=== PATIENT | female | born 1990 | race Caucasian/White ===

== ENCOUNTER 2021-12-25 20:04 | Emergency (ER) | payer BC, SELFPAY ==
[2021-12-25 20:20] VITALS: BP 145/89; PULSE 89; RESP 18; TEMP 36.7; O2SAT 99; BMI 23.5
--- NOTE | 2021-12-25 20:38 | CRLHL7_ITS ---
For Patients: As a result of the Century Cures Act, medical imaging exams and procedure reports are released immediately into your electronic medical record. You may view this report before your referring provider. If you have questions, please contact your health care provider. INDICATION: Left-sided abdominal pain. Nausea. TECHNIQUE: CT abdomen and pelvis without contrast. COMPARISON: None. FINDINGS: Lower chest: Scattered dependent atelectasis. Liver: Normal in size and attenuation. No suspicious masses. Gallbladder and bile ducts: No stones or inflammation. No biliary dilatation. Pancreas: Unremarkable. No mass or inflammation. Spleen: Normal in size. No masses. Adrenal glands: Normal in size. No nodules. Kidneys: Normal in size. No suspicious masses, stones, or hydronephrosis. GI tract: Moderate colonic stool burden.. Normal in caliber. No sign of mass or inflammation. Normal appendix. Vasculature: Abdominal aorta is normal in caliber. Lymph nodes: No lymphadenopathy. Peritoneum/Abdominal Wall: Unremarkable. No sign of mass or infiltration. No free air or significant free fluid. Pelvis: Fibroid uterus. Bones: Unremarkable for age. IMPRESSION: No acute intra-abdominal/pelvic abnormality on this noncontrast CT scan. Moderate colonic stool burden. Please note that all CT scans at this facility use dose modulation, iterative reconstruction, and/or weight-based dosing when appropriate to reduce radiation dose to as low as reasonably achievable. Dictated by Jamie Roberson MD @ 12/25/2021 9:47:41 PM (Electronically Signed)
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
[2021-12-25 20:43] LABS: Color Urine Yellow (Yellow)
[2021-12-25 20:44] LABS: Appearance Urine Clear (Clear); Bilirubin Urine Negative (Negative); Blood Urine Negative (Negative); Glucose Urine Negative (Negative); Ketones Urine Negative (Negative); Specific Gravity Urine 1.015 (1.000-1.030); pH Urine 6.5 (5.0-8.5)
[2021-12-25 20:45] LABS: Leukocyte Esterase Urine Negative (Negative); Nitrite Urine Negative (Negative); Protein Urine Negative (Negative); RBC Urine 0-2 (0-2); Squamous Epithelial Cell Urine Few (None-Few); Ur HCG Qualitative* Negative (Negative); Urobilinogen Urine 0.2 (0.2-1.0); WBC Urine 0-2 (0-5)
[2021-12-25 21:52] VITALS: BP 135/71; PULSE 79; RESP 18; TEMP 36.7; O2SAT 99
[2021-12-25] MEDS: IBUPROFEN 200 MG TABLET 400 MG PO (21:57)
[2021-12-25 22:05] VITALS: BP 135/71; PULSE 79; RESP 18; TEMP 36.7
--- OUTSIDE RECORDS SUMMARY | 2021-12-27 10:51 | XMS_ITS | Clinical Summary ---
:1990 Author Organization [facility] [place] [address] Care Team Providers Name Role Phone Gemma Hewitt Primary Care Provider Allergies No known active allergies Medications Medication Sig Dispensed Refills Start Date End Date Status albuterol HFA Inhale 2 Puffs by 1 Inhaler 0 02/21/2015 Active (PRO-AIR,VENTOLIN,NE mouth every 4 hours OVENTIL) 90 if needed. mcg/actuation inhalerIndications: Bronchitis fluticasone (50 mcg Inhale 1 [place] into 1 Bottle 0 07/16/2015 Active per actuation) nasal both nostrils once solution daily. (FLONASE)Indications : Middle ear effusion, right citalopram (CELEXA) TAKE ONE TABLET BY 90 tablet 1 11/23/2015 Active 40 mg MOUTH EVERY DAY - tabletIndications: DISCONTINUE 20 MG Adjustment disorder TABLETS with depressed mood LORazepam (ATIVAN) 1 1 oral twice daily 15 tablet 0 12/10/2015 Active mg as needed anxiety tabletIndications: attacks Adjustment disorder with mixed anxiety and depressed mood traZODone (DESYREL) Take 1 tablet oral 180 tablet 1 12/10/2015 Active 100 mg at bedtime for tabletIndications: sleep Anxiety VITAMIN TAKE ONE TABLET BY 100 tablet 3 05/25/2017 Active PLUS LOW IRON 27 mg MOUTH EVERY DAY iron- 1 mg tabletIndications: Encounter for supervision of normal first in first trimester Active Problems Problem Noted Date Encounter for supervision of normal first Vitamin D deficiency 03/28/2013 Overweight(278.02) 01/13/2013 Abnormal Pap smear 01/13/2013 BALWINDER I (cervical intraepithelial neoplasia I) 0 Overview: 03/2009: Pap LGSIL 05/2009: Colpo BALWINDER 1 01/07: Pap and HPV pending Tobacco use disorder 08/19/2006 HPV (human papilloma virus) infection Overview: needs colp Cervical high risk HPV (human papillomavirus) test pos itive Overview: Plan: Routine Screening Comments Yes Resolved Problems Problem Noted Date Resolved Date BRONCHITIS - ACUTE 03/17/2005 01/16/2011 Immunizations Name Administration Dates Next Due DTP 05/04/1991, 05/12/1990, 03/11/1990, 11/29 DTaP 12/24/1994 HIB PRP-OMP (PedvaxHIB) 05/04/1991 Hepatitis B (Peds) 01/03/2003, 12/22/2001, 11/17/2001 Human Papilloma Virus Vaccine 07/25/2011, 03/18/2011, 2010 MMR 11/28/2003, 05/04/1991 Oral Polio Vaccine 11/14/1991, 08/02/1991, 03/11/1990, 11/29 Td (Age >=7 Years) 01/03/2003 Tdap 01/15/2011 Family History Medical History Relation Name Comments Good Health Father Good Health Mother Hypertension Mother Bipolar disorder Paternal Aunt Cancer Paternal Grandfather Cancer-colon Paternal Grandmother Bipolar disorder Sister Depression Sister Relation Name Status Comments Father Alive Maternal Grandfather Maternal Grandmother Mother Alive Paternal Aunt Paternal Grandfather Paternal Grandmother Sister Alive Social History Tobacco Use Types Packs/Day Years Used Date Current Every Day Smoker Cigarettes 0.5 6 Smokeless Tobacco: Never Used Tobacco Cessation: Ready to Quit: No; Co unseling Given: Yes Alcohol Use Standard Drinks/Week Comments No 1 (1 standard drink = 0.6 oz pure alcoho l) Last drink 01/28/2016 Alcohol Habits Answer Date Recorded How often do you have a drink containing alcohol? Not asked How many drinks containing alcohol do you have on Not asked a typical day when you are drinking? How often do you have six or more drinks on one Not asked occasion? Comment: Last drink 01/28/2016 02/04/2016 Comments Yes Sex Assigned at Date Recorded Not on file Obstetrics History Para Term AB IAB SAB Ectopic Multiple Living Live Births 1 0 0 0 0 0 0 0 0 0 Date Outcome GA Total Labor/2nd/3rd Weight Sex Delivery Anes PTL Pao A 1 A5 Name Clin Labor Current Last Filed Vital Signs Vital Sign Reading Time Taken Comments Blood Pressure 128/62 02/04/2016 12:43 PM JAVA WEB USER INTERFACE DEVELOPER Pulse 80 02/04/2016 12:43 PM JAVA WEB USER INTERFACE DEVELOPER Temperature 36.9 ??C (98.4 ??F) 07/16/2015 11:42 AM CDT Respiratory Rate 16 04/08/2013 3:58 PM JAVA WEB USER INTERFACE DEVELOPER Oxygen Saturation 97% 07/16/2015 11:42 AM CDT Inhaled Oxygen Concentration - - Weight 69.1 kg (152 lb 6.4 oz) 02/04/2016 12:43 PM JAVA WEB USER INTERFACE DEVELOPER Height 164.5 cm (5' 4.76) 02/04/2016 12:43 PM JAVA WEB USER INTERFACE DEVELOPER Body Mass Index 25.55 02/04/2016 12:43 PM JAVA WEB USER INTERFACE DEVELOPER Plan of Treatment Health Maintenance Due Date Last Done Comments COVID-19 vaccine series (#1) 03/17/1990 Depression screening for age 12+ 12/09/2016 12/10/2015, , 05/28/2015 BMI (ht and wt on same day) for 02/03/2017 02/04/2016, 11/28, age 18+ 06/29/2015, Additional history exists Tetanus booster 01/15/2021 01/15/2011, 01/03/2003 Influenza for age 9-49 11/28/2021 Pap test for age 21-65 03/18/2022 03/18/2019, 10/06/2017, 06/29/2015, Additional history exists Hepatitis C screening for age Completed 01/15/2011 18-79 Tdap Completed 01/15/2011 Results Not on filefrom Last 3 Months Insurance Payer Benefit Plan / Subscriber ID Effective Dates Phone Addre ss Type Group UCARE [place] UCARE [place] [id number] 2013-Present [address] [place] [address] [place] [id number] 2013-Present [address] [address] [place] [address] Tomasa Ugalde Personal/Family Self 1990 [address] [place] [address] Care Teams Double Spindle Shaper Operator Relationship Specialty Start Date End Date Gemma Hewitt DO PCP - General Family Practice 11/22/15 [id number] [place] [address]
== END 2021-12-25 22:05 | disposition home or self-care (01) ==
PROVIDERS: Emergency Provider Emergency Medicine; PCP Physician Assistant Medical
DX: R10.9 Unspecified abdominal pain (principal)
CPT/HCPCS: 74176; 81001; 81025; 99284; A9270

== ENCOUNTER 2023-09-03 15:23 | Outpatient (CLI) | payer BC, SELFPAY ==
--- OUTSIDE RECORDS SUMMARY | 2023-09-03 15:25 | XMS_ITS | Encounter Summary ---
Author Organization [place] Address [facility] [place] [address] Care Team Providers Care Cake Press Operator Helper Name Role Phone Clinic, [facility] Primary Care Provider Reason for Visit * Reason Onset Date Comments Results 06/29/2023 Encounter Details Date Type Department Care Team (Late st Contact Info) Description 06/29/2023 Telephone [facility] [place] [id number] [place] [phone] Dalton Toussaint PA-C [address] [place] [address] [phone] Results Social History Tobacco Use Types Packs/Day Years Used Date Smoking Tobacco: Never Assessed Alcohol Use Standard Drinks/Week Comments Yes 0 (1 standard drink = 0.6 oz pur e alcohol) Adolescent Education Answer Date Record ed Getting School Help Needed Not on file 12/19 Sex and Gender Information Value Date Recorded Sex Assigned at Not on file Gender Identity Not on file Sexual Orientation Not on file documented as of this encounter Miscellaneous Notes * Telephone Encounter - Dalton Toussaint PA-C - 06/29/2023 7:05 PM CDT Called patient and informed of positive strep result. Will treat patient with oral antibiotics. Sheprefers liquid. Previously has had allergic reaction to amoxicillin. Change toothbrush in 72 hours. documented in this encounter Plan of Treatment Not on file documented as of this encounter Visit Diagnoses Diagnosis Strep throat- Primary Streptococcal sore throat documented in this encounter Care Teams Cake Press Operator Helper Relationship Specialty Start Date End Date [facility], [place] [id number] PCP - General 01/03/22 documented as of this encounter
--- OUTSIDE RECORDS SUMMARY | 2023-09-03 15:25 | XMS_ITS | Clinical Summary ---
Author Organization [facility] Address [address] [place] [address] Care Team Providers Care Flight Test Engineer Name Role Phone Clinic, [facility] Primary Care Provider Allergies No known active allergies Medications Medication Sig Dispensed Refills Start Date End Date Status ALPRAZolam (XANAX) 0.5 MG tablet Take 1 tablet by mouth 3 times daily as needed for anxiety. 12 tablet 0 01/18/2012 Active Additional Information Patient not taking.Reported on 06/27/2023 Active Problems No known active problems Encounters Date Type Department Care Team Description 06/29/2023 Telephone [facility] [address] [place] [phone] Dalton Toussaint PA-C Results 06/29/2023 Telephone [facility] [address] [place] [phone] [facility] Medical Results 06/27/2023 1:35 PM CDT Office Visit [facility] [address] [place] [phone] Lia Naranjo MD Cough, unspecified type (Primary Dx); Ear congestion, bilateral 06/27/2023 Travel from Last 3 Months Social History Tobacco Use Types Packs/Day Years [...] on file Sexual Orientation Not on file Last Filed Vital Signs Vital Sign Reading Time Taken Comments Blood Pressure 146/97 06/27/2023 2:40 PM CDT Pulse 107 06/27/2023 2:40 PM CDT Temperature 36.6 ??C (97.8 ??F) 06/27/2023 2:40 PM CD T Respiratory Rate 16 06/27/2023 2:40 PM CDT Oxygen Saturation 99% 06/27/2023 2:40 PM CDT Inhaled Oxygen Concentration - - Weight 67.4 kg (148 lb 11.2 oz) 06/27/2023 2:40 PM CDT Height - - Body Mass Index - - Plan of Treatment Health Maintenance Due Date Last Done Comments ADVANCE CARE PLANNING 1990 ANNUAL REVIEW OF HM ORDERS 1990 YEARLY PREVENTIVE VISIT 1990 HIV SCREENING 2004 HEPATITIS C SCREENING 09/16/2007 PAP 03/18/2022 03/18/2019 COVID-19 Vaccine ( season) 2022 PHQ-2 (once per calendar year) 2023 INFLUENZA VACCINE (Season Ended) 2023 DTAP/TDAP/TD IMMUNIZATION (8 - Td or Tdap) 08/04/2026 08/04/2016, 01/15/2011, 01/03/2003, Additional history exists IPV IMMUNIZATION Completed 11/14/1991, 07/1991, 03/11/1990, Additional history exists HEPATITIS B IMMUNIZATION Completed 003, 12/22/2001, 11/17/2001 HPV IMMUNIZATION Completed 07/25/2011, , 01/15/2011 MENINGITIS IMMUNIZATION Aged Out No l onger eligible based on patient's age to complete this topic Pneumococcal Vaccine: Pediatrics (0 to 5 Years) and At-Risk Patients (6 to 64 Years) Aged Out No longer eligible based on patient's age to complete this topic RSV MONOCLONAL ANTIBODY Aged Out No l onger eligible based on patient's age to complete this topic Procedures Procedure Name Priority Date/Time Associated Diagnosis Comments GROUP A STREPTOCOCCUS PCR THROAT SWAB Routine 06/27/2023 2:30 PM CDT Cough, unspecified type INFLUENZA A/B ANTIGEN Routine 06/27/2023 2:30 PM CDT Cough, unspecified type STREPTOCOCCUS A RAPID SCREEN W REFELX TO PCR Routine 06/27/2023 2:30 PM CDT Cough, unspecified type from Last 3 Months Results * Streptococcus A Rapid Screen w/Reflex to PCR - Clinic Collect (06/27/2023 2:30 PM CDT) Group A Strep antigen Negative Negative 06/27/2023 3:03 PM CDT [facility] Swab STRUCTURE OF ANTERIOR PORTION OF NECK / Unknown Non-blood Collection / Unknown 06/27/2023 2:30 PM CDT 06/27/2023 2:54 PM CDT Lia Naranjo MD LAB - MICRO GENERAL ORDERABLES LABORATORY [facility] [address] [facility] (no room number, 1st floor of clinic) [place] [address] [phone] * (ABNORMAL) Group A Streptococcus PCR Throat Swab (06/27/2023 2:30 PM CDT) Group A strep by PCR Detected( A) Not Detected 06/29/2023 1:56 PM CDT [facility] Swab STRUCTURE OF ANTERIOR PORTION OF NECK / Unknown Non-blood Collection / Unknown 06/27/2023 2:30 PM CDT 06/27/2023 3:03 PM CDT Narrative [facility] - 06/29/2023 1:56 PM CDT The Xpert Xpress Strep A test, performed on the [employer], is a rapid, qualitative in vitro diagnostic test for the detection of Streptococcus pyogenes (Group A ? - hemolytic Streptococcus, Strep A) in throat swab specimens from patients with signs and symptoms of pharyngitis. The Xpert Xpress Strep A test can be used as an aid in the diagnosis of Group A Streptococcal pharyngitis. The assay is not intended to monitor treatment for Group A Streptococcus infections. The Xpert Xpress Strep A test utilizes an automated real-time polymerase chain reaction (PCR) to detect Streptococcus pyogenes DNA. Lia Naranjo MD LAB - MICRO GENERAL ORDERABLES [facility]. [facility] Lab [address] [facility], [address] [place] [phone] * Influenza A & B Antigen - Clinic Collect (06/27/2023 2:30 PM CDT) Influenza A antigen Negative Negative 06/27/2023 3:15 PM CDT [facility] Influenza B antigen Negative Negative 06/27/2023 3:15 PM CDT [facility] Swab NASAL STRUCTURE / Unknown Non-blood Collection / Unknown 06/27/2023 2:30 PM CDT 06/27/2023 2:54 PM CDT Narrative [facility] - 06/27/2023 3:15 PM CDT Test results must be correlated with clinical data. If necessary, results should be confirmed by a molecular assay or viral culture. Lia Naranjo MD LAB - MICRO GENERAL ORDERABLES [facility] [address] [facility] (no room number, 1st floor of clinic) [place] [address], [facility] [phone] from Last 3 Months Care Teams Flight Test Engineer Relationship Specialty Start Date End Date Clinic, [address] [address] PCP - General 01/03/22
--- OUTSIDE RECORDS SUMMARY | 2023-09-03 15:25 | XMS_ITS | Clinical Summary ---
Author Organization [facility] Address [place], [place] [address] Care Team Providers Care Clothing Patternmaker Name Role Phone Gemma Hewitt Primary Care Provider [phone] Allergies No known active allergies Medications Medication Sig Dispensed Refills Start Date End Date Status albuterol HFA (PRO-AIR,VENTOLIN,P ROVENTIL) 90 mcg/actuation inhalerIndications: Bronchitis Inhale 2 Puffs by mouth every 4 hours if needed. 1 Inhaler 0 02/21/2015 Active fluticasone (50 mcg per actuation) nasal solution (FLONASE)Indication s:Middle ear effusion, right Inhale 1 [place] into both nostrils once daily. 1 Bottle 0 07/16/2015 Active citalopram (CELEXA) 40 mg tabletIndications:A djustment disorder with depressed mood TAKE ONE TABLET BY MOUTH EVERY DAY - DISCONTINUE 20 MG TABLETS 90 tablet 1 11/23/2015 Active LORazepam (ATIVAN) 1 mg tabletIndications:A djustment disorder with mixed anxiety and depressed mood 1 oral twice daily as needed anxiety attacks 15 tablet 0 12/10/2015 Active traZODone (DESYREL) 100 mg tabletIndications:A nxiety Take 1 tablet oral at bedtime for sleep 180 tablet 1 12/10/2015 Active VITAMIN PLUS LOW IRON 27 mg iron- 1 mg tabletIndications:E ncounter for supervision of normal first in first trimester TAKE ONE TABLET BY MOUTH EVERY DAY 100 tablet 3 05/25/2017 Active Active Problems Problem Noted Date Diagnosed Date Encounter for supervision of normal first pregna ncy 02/04/2016 Vitamin D deficiency 03/28/2013 Overweight(278.02) 01/13/2013 Abnormal Pap smear 01/13/2013 BALWINDER I (cervical intraepithelial neoplasia I) Overview: 03/2009: Pap LGSIL 05/2009: Colpo BALWINDER 1 01/07: Pap and HPV pending Tobacco use disorder 08/19/2006 HPV (human papilloma virus) infection Overview: needs colp Cervical high risk HPV (human papillomavirus) te st positive Overview: Plan: Routine Screening Comments Yes Resolved Problems Problem Noted Date Diagnosed Date Resolved Date BRONCHITIS - ACUTE 03/17/2005 1 Immunizations Name Administration Dates Next Due DTP 05/04/1991,05/12/1990,03/11/1990 ,1989 DTaP 12/24/1994 HIB PRP-OMP (PedvaxHIB) 05/04/1991 Hepatitis B (Peds) 01/03/2003,12/22/2001, 002 Human Papilloma Virus Vaccine 07/25/2011, 011,01/15/2011 MMR 11/28/2003,05/04/1991 Oral Polio Vaccine 11/14/1991,08/02/1991, 990,1989 Td (Age >=7 Years) 01/03/2003 Tdap 01/15/2011 [...] Types Packs/Day Years Used Date Smoking Tobacco: Every Day Cigarettes 0.5 6 Smokeless Tobacco: Never Tobacco Cessation:Ready to Q uit: No; Counseling Given: Yes Alcohol Use Standard Drinks/Week Comments No 1 (1 standard drink = 0.6 oz pur e alcohol) Last drink 01/28/2016 Comments Yes Sex and Gender Information Value Date Recorded Sex Assigned at Not on file Gender Identity Not on file Sexual Orientation Not on file Obstetrics History Para Term AB IAB SAB Ectopic Multiple Livin g Live Births 1 0 0 0 0 0 0 0 0 0 Date Outcome GA Total Labor Labor/2nd/3rd Weight Sex Delivery Anes PTL Pao A1 A5 Name Cl in Current Last Filed Vital Signs Vital Sign Reading Time Taken Comments Blood Pressure 128/62 02/04/2016 12:43 PM MANAGER INTEGRATED Pulse 80 02/04/2016 12:43 PM MANAGER INTEGRATED Temperature 36.9 ??C (98.4 ??F) 07/16/2015 11:42 AM C DT Respiratory Rate 16 04/08/2013 3:58 PM MANAGER INTEGRATED Oxygen Saturation 97% 07/16/2015 11:42 AM CDT Inhaled Oxygen Concentration - - Weight 69.1 kg (152 lb 6.4 oz) 02/04/2016 12:43 PM MANAGER INTEGRATED Height 164.5 cm (5' 4.76) 02/04/2016 12:[address] Body Mass Index 25.55 02/04/2016 12:43 PM MANAGER INTEGRATED Plan of Treatment Health Maintenance Due Date Last Done Comments Depression screening for age 12+ 12/09/2016 12/10/2015, 08/15/2015, 05/28/2015 BMI (ht and wt on same day) for age 18+ 02/03/2017 02/04/2016, 12/10/2015, 06/29/2015, Additional history exists Tetanus booster 01/15/2021 01/15/2011, 01/03/2003 Pap test for age 21-65 03/18/2022 , 10/06/2017, 06/29/2015, Additional history exists COVID-19 vaccine series (2022- season) 2022 Influenza for age 9-49 11/29/2023 Hepatitis C screening for age 18-79 Completed 01/15/2011 Tdap Completed 01/15/2011 HIV for age 15-65 Completed 02/04/2016, 01/15/2011 Pneumococcal series for age 6-64 Aged Out No longer eligible based on patient's age to complete this topic Procedures Procedure Name Priority Date/Time Associated Diagnosis Comments CATCHER FILTER TIP THIN PREP PAP SCREEN IMAGED Routine 03/18/2019 3:10 PM MANAGER INTEGRATED ANTI HIV 1/2 Routine 02/04/2016 1:14 PM MANAGER INTEGRATED Encounter for supervision of normal first in first trimester ANTI HCV Routine 01/15/2011 2:23 PM CDT Screen for STD (sexually transmitted disease) from Last 3 Months or Most Recently Relevant to Health Maintenance Results * CATCHER FILTER TIP THIN PREP PAP SCREEN IMAGED (03/18/2019 3:10 PM MANAGER INTEGRATED) Case Report Gynecologic Cytology Report ? Case: [id number] ? Authorizing Provider: ??Benita Khanna PA-C ? Collected: ? 03/18/2019 1510 ? Ordering Location: ? [facility] ?Received: ?03/22/2019 0956 ? First Screen: ?Fuad Lutz ? Specimen: ?CATCHER FILTER TIP ThinPrep Vial Screening, Cervical/Vaginal ? 04/04/2019 12:01 PM MANAGER INTEGRATED [facility] INTERPRETATION/ RESULT NEGATIVE FOR INTRAEPITHELIAL LESION OR MALIGNANCY (NIL) (none) 04/04/2019 12:01 PM MANAGER INTEGRATED [facility] IMEN ADEQUACY Satisfactory for evaluation Endocervical component present 04/04/2019 12:01 PM MANAGER INTEGRATED [facility] HPV REQUEST HPV if ASCUS 04/04/2019 12:01 PM MANAGER INTEGRATED [facility] Date of LMP 02/27/2019 04/04/2019 12:01 PM MANAGER INTEGRATED [facility] Last Pap Result 0 12:01 PM MANAGER INTEGRATED [facility] Comment:HX +HPV Additional Information 04/04/2019 12:01 PM MANAGER INTEGRATED [facility] Comment: Interpreted at [facility] - [address], [place] [address] Automated Review Successful 04/04/2019 12:01 PM MANAGER INTEGRATED [facility] Comment:Specimen processed s uccessfully by automated frog or oyster farmworker device, ThinPrep Imaging System, [employer] Note The pap test is a screening technique, not a diagnostic procedure. It is used primarily to screen for squamous cancers and precursor lesions. Published studies have shown that it is subject to both false negative and false positive results. The pap test should not be used as the sole means to diagnose or exclude pre-malignant and malignant lesions. 04/04/2019 12:01 PM MANAGER INTEGRATED [facility] Other (Cervical/Vagina l) 03/18/2019 3:10 PM MANAGER INTEGRATED 03/22/2019 9:56 AM MANAGER INTEGRATED Benita Khanna PA-C PATHOLOGY/CYTOLOGY [facility] [address] [place] [address], * ANTI HIV 1/2 (02/04/2016 1:14 PM MANAGER INTEGRATED) HIV-1/HIV-2 ANTIBODY Non-Reacti ve Non-Reacti ve 02/04/2016 7:19 PM MANAGER INTEGRATED [facility] Blood BLOOD SPECIMEN / Unknown Venipuncture / Unknown 02/04/2016 1:14 PM MANAGER INTEGRATED 02/04/2016 1:14 PM MANAGER INTEGRATED Narrative [facility] - 02/04/2016 7:19 PM MANAGER INTEGRATED HIV-1 p24 and HIV-1/HIV-2 Ab not detected Corrie Monreal MD SEND OUTS [facility] [address] [place] [address], [place] * ANTI HCV (01/15/2011 2:23 PM CDT) ANTI HCV Non-reacti ve [facility] Blood specimen (specimen) BLOOD SPECIMEN / Unknown 01/15/2011 2:23 PM CDT 01/15/2011 2:21 PM CDT Destiney Jasso MD SEND OUTS [facility] INTERNAL ZIP [address] [address] from Last 3 Months or Most Recently Relevant to Health Maintenance Care Teams Clothing Patternmaker Relationship Specialty [place] [address] [place] [address] PCP - General Family Practice 11/22/15
--- OUTSIDE RECORDS SUMMARY | 2023-09-03 15:25 | XMS_ITS | Referral Summary ---
Author Organization [place] Address [address] [place] [address] Care Team Providers Care Rental Car Ferry Driver Name Role Phone Clinic, [facility] Primary Care Provider Encounters Date Type Department Care Team Description 06/29/2023 Telephone [facility] [address] [place] [phone] Dalton Toussaint PA-C Results 06/29/2023 Telephone [facility] [address] [place] [phone] [facility], [facility] Medical Results 06/27/2023 Travel 06/27/2023 1:35 PM CDT Office Visit [facility] [address] [place] [phone] Lia Naranjo MD Cough, unspecified type (Primary Dx); Ear congestion, bilateral from Last 3 Months Allergies No known active allergies Medications Medication Sig Dispensed Refills Start Date End Date Status ALPRAZolam (XANAX) 0.5 MG tablet Take 1 tablet by mouth 3 times daily as needed for anxiety. 12 tablet 0 01/18/2012 Active Additional Information Patient not taking.Reported on 06/27/2023 Active Problems No known active problems Social History Tobacco Use Types Packs/Day Years [...] Mass Index - - Plan of Treatment Not on file Procedures Procedure Name Priority Date/Time Associated Diagnosis [...] antigen Negative Negative 06/27/2023 3:03 PM CDT LABORATORY Swab STRUCTURE OF ANTERIOR PORTION OF NECK / Unknown Non-blood Collection / Unknown 06/27/2023 2:30 PM CDT 06/27/2023 2:54 PM CDT Lia Naranjo MD LAB - MICRO GENERAL ORDERABLES LABORATORY [facility] [address] [facility] (no room number, 1st floor of clinic) [place] [address], [facility] [phone] * (ABNORMAL) Group A Streptococcus PCR Throat Swab (06/27/2023 2:30 PM CDT) Pathologist [facility] Group A strep by PCR Detected( A) Not Detected 06/29/2023 1:56 PM CDT [facility] Swab STRUCTURE OF ANTERIOR PORTION OF NECK / Unknown Non-blood Collection / Unknown 06/27/2023 2:30 PM CDT 06/27/2023 3:03 PM CDT Narrative [facility] - 06/29/2023 1:56 PM CDT The Xpert Xpress Strep A test, performed on the [employer]?? [employer], is a rapid, qualitative in vitro [...] - MICRO GENERAL ORDERABLES [facility] Inf. Diseases Diag. Lab [address] [facility], [address] [place] [phone] * Influenza A & B Antigen - Clinic Collect (06/27/2023 2:30 PM CDT) Pathologist [facility] Influenza A antigen Negative Negative 06/27/2023 3:15 PM CDT LABORATORY Influenza B antigen Negative Negative 06/27/2023 3:15 PM CDT LABORATORY Swab NASAL STRUCTURE / Unknown Non-blood Collection / Unknown 06/27/2023 2:30 PM CDT 06/27/2023 2:54 PM CDT Narrative LABORATORY - 06/27/2023 3:15 PM CDT Test results must be correlated with clinical data. If necessary, results should be confirmed by a molecular assay or viral culture. Lia Naranjo MD LAB - MICRO GENERAL ORDERABLES LABORATORY [facility] [address] [facility] Lab (no room number, 1st floor of clinic) [place] [address], [facility] [phone] from Last 3 Months Care Teams Rental Car Ferry Driver Relationship Specialty Start Date End Date Clinic, [address] [address] PCP - General 01/03/22
--- OUTSIDE RECORDS SUMMARY | 2023-09-03 15:25 | XMS_ITS | Encounter Summary ---
Author Organization [place] Address [facility] [place] [address] Care Team Providers Care Supervisor Net Making Name Role Phone [facility] Primary Care Provider Reason for Visit * Reason Onset Date Comments Results 06/29/2023 Encounter Details Date Type Department Care Team (Late st Contact Info) Description 06/29/2023 Telephone [facility] [place] [address] [place] [phone] [address] Results Social History Tobacco Use Types Packs/Day [...] encounter Miscellaneous Notes * Telephone Encounter - Marj Edgar RN - 07/15/2023 5:47 PM CDT Reviewed open encounter, anx was prescribed. Closing * Telephone Encounter - Marj Edgar RN - 06/29/2023 5:10 PM CDT Images from the original note were not included. Patient called to follow up on results. Component Ref Range & Units 2 d ago Group A strep by PCR Not Detected Detected Abnormal Advised patient promotion writer will route the message to UC Patient would like a call back when rx is done documented in this encounter Plan of Treatment Not on file documented as of this encounter Visit Diagnoses Not on filedocumented in this encounter Care Teams Supervisor Net Making Relationship Specialty Start Date End Date Clinic, [place] [id number] PCP - General 01/03/22 documented as of this encounter
--- OUTSIDE RECORDS SUMMARY | 2023-09-03 15:25 | XMS_ITS | Encounter Summary ---
Author Organization [place] Address [address] [place] [address] Care Team Providers Care Business Rules Analyst Name Role Phone Delmis Wang MD Primary Care Provider [phone] [facility] Primary Care Provider Encounter Details Date Type Department Care Team ([facility] Contact Info) Description 03/15/2014 Telephone [facility] Behavioral Health Intake [address] [place] [address] Generic, Behavioral Intake, Social History Tobacco Use Types Packs/Day Years Used Date Smoking Tobacco: Never Assessed Alcohol Use Standard Drinks/Week Comments Yes 0 (1 standard drink = 0.6 oz pur e alcohol) Sex and Gender Information Value Date Recorded Sex Assigned at Not on file Gender Identity Not on file Sexual Orientation Not on file documented as of this encounter Miscellaneous Notes * Telephone Encounter - Timo Benjamin - 03/15/2014 4:24 PM CST Calling for cd evaluation. Previous treatment at [facility]/ 8 years ago. Says she had a dwi 10/09. On probation. Meds: hx of zoloft, takes ativan prn. Lives with father. kab ATION DIRECTOR documented in this encounter Plan of Treatment Not on file documented as of this encounter Visit Diagnoses Not on filedocumented in this encounter Care Teams Business Rules Analyst Relationship Specialty Start Date End Date Delmis Wang MD PCP - General 01/18/12 01/02/22 [address] [place] [address] PCP - General 01/03/22 documented as of this encounter
--- OUTSIDE RECORDS SUMMARY | 2023-09-03 15:25 | XMS_ITS | Encounter Summary ---
Author Organization [place] Address [facility] [place] [address] Care Team Providers Care Brusher Name Role Phone Clinic, [facility] Primary Care Provider Reason for Visit * Reason Comments Throat Pain 32 yo F presents wit h feeling of swelling in throat and ears onset 5 days tx- allergy meds, ibuprofen Encounter Details Date Type Department Care Team (Late st Contact Info) Description 06/27/2023 1:35 PM CDT Office Visit [facility] [place] [id number] [place] [phone] Lia Naranjo MD [address] [facility] [address] [place] [address] Cough, unspecified type (Primary Dx); Ear congestion, bilateral Social History Tobacco Use Types Packs/Day Years [...] on file documented as of this encounter Last Filed Vital Signs Vital Sign Reading [...] - - Body Mass Index - - documented in this encounter Patient Instructions * Patient Instructions* Lia Naranjo MD - 06/27/2023 1:35 PM CDT treat with gargles, lozenges, and OTC analgesic as needed. Follow-up with primary clinic if not improving. Continue on antihistamines and decongestants documented in this encounter Progress Notes * Lia Naranjo MD - 06/27/2023 1:35 PM CDT Chief Complaint Patient presents with Throat Pain 32 yo F presents with feeling of swelling in throat and ears onset 5 days tx- allergy meds, susi Tomasa was seen today for throat pain. Diagnoses and all orders for this visit: Cough, unspecified type - Streptococcus A Rapid Screen w/Reflex to PCR - Clinic Collect - Influenza A & B Antigen - Clinic Collect - Group A Streptococcus PCR Throat Swab Ear congestion, bilateral Results for orders placed or performed in visit on 06/27/23 Streptococcus A Rapid Screen w/Reflex to PCR - Clinic Collect Status: Normal Specimen: Throat; Swab Result Value Ref Range Group A Strep antigen Negative Negative Influenza A & B Antigen - Clinic Collect Status: Normal Specimen: Nose; Swab Result Value Ref Range Influenza A antigen Negative Negative Influenza B antigen Negative Negative Narrative Test results must be correlated with clinical data. If necessary, results should be confirmed by a molecular assay or viral culture. ASSESSMENT: Cough, unspecified type PLAN: See orders in [facility]. Symptomatic treat with gargles, lozenges, and OTC analgesic as needed. Follow-up with primary clinic if not improving. Continue on antihistamines and decongestants Follow up if symptoms fail to improve or worsens Pt understood and agreed with plan SUBJECTIVE: Tomasa Ugalde is a 32 year old female with a chief complaint of sore throat and ear congestion . Onset of symptoms was 5 day(s) ago. Course of illness: gradual onset. Severity moderate Current and Associated symptoms: cough - non-productive, ear pain bilateral, and sore throat Treatment measures tried include Tylenol/Ibuprofen. Predisposing factors include recent illness . Past Medical History: Diagnosis Date Methamphetamine abuse Current Outpatient Medications Medication Sig Dispense Refill ALPRAZolam (XANAX) 0.5 MG tablet Take 1 tablet by mouth 3 times daily as needed for anxiety. (Patient not taking: Reported on 06/27/2023) 12 tablet 0 Social History Tobacco Use Smoking status: Not on file Smokeless tobacco: Not on file Substance Use Topics Alcohol use: Yes ROS: Review of systems negative except as stated above. OBJECTIVE: BP (!) 146/97 Pulse 107 Temp 97.8 ??F (36.6 ??C) Resp 16 Wt 67.4 kg (148 lb 11.2 oz) [id number]% GENERAL APPEARANCE: healthy, alert and no distress EYES: EOMI, PERRL, conjunctiva clear HENT: ear canals and TM congested . Nose normal. Pharynx erythematous with no exudate noted. NECK: supple, non-tender to palpation, no adenopathy noted RESP: lungs clear to auscultation - no rales, rhonchi or wheezes CV: regular rates and rhythm, normal S1 S2, no murmur noted PSYCH: mentation appears normal Lia Naranjo MD documented in this encounter Plan of Treatment Not on file documented as of this encounter Procedures Procedure Name Priority Date/Time Associated Diagnosis Comments STREPTOCOCCUS A RAPID SCREEN W REFELX TO PCR Routine 06/27/2023 2:30 PM CDT Cough, unspecified type GROUP A STREPTOCOCCUS PCR THROAT SWAB Routine 06/27/2023 2:30 PM CDT Cough, unspecified type INFLUENZA A/B ANTIGEN Routine 06/27/2023 2:30 PM CDT Cough, unspecified type documented in this encounter Results * (ABNORMAL) Group A Streptococcus PCR Throat [...] Xpress Strep A test, performed on the [employer]?? [employer] Systems, is a rapid, qualitative in vitro [...] - MICRO GENERAL ORDERABLES [facility] Inf. Diseases Diag. Lab [address] [facility], [address] [place] [address] * Influenza A & B Antigen - Clinic Collect (06/27/2023 2:30 PM CDT) Pathologist [facility] Influenza A antigen Negative Negative 06/27/2023 3:15 [...] MD LAB - MICRO GENERAL ORDERABLES LABORATORY [facility] [address] [facility] (no room number, 1st floor of clinic) [place] [address], [facility] [phone] * Streptococcus A Rapid Screen w/Reflex to PCR - Clinic Collect (06/27/2023 2:30 PM CDT) Group A Strep antigen Negative Negative 06/27/2023 3:03 PM CDT [facility] LABORATORY Swab STRUCTURE OF ANTERIOR PORTION OF NECK / Unknown Non-blood Collection / Unknown 06/27/2023 2:30 PM CDT 06/27/2023 2:54 PM CDT Lia Naranjo MD LAB - MICRO GENERAL ORDERABLES [facility] LABORATORY [facility] [place] [address] [facility] Lab (no room number, 1st floor of clinic) [place] [address], [facility] [phone] documented in this encounter Visit Diagnoses Diagnosis Cough, unspecified type- Primary Ear congestion, bilateral documented in this encounter Care Teams Brusher Relationship Specialty Start Date End Date [facility], [address] [address] PCP - General 01/03/22 documented as of this encounter
--- OUTSIDE RECORDS SUMMARY | 2023-09-03 15:25 | XMS_ITS | Encounter Summary ---
Author Organization [place] Address [address] [place] [address] Care Team Providers Care Pressroom Worker Name Role Phone Clinic, [facility] Primary Care Provider Encounter Details Date Type Department Care Team (Latest Contact Info) Description 06/27/2023 Travel Social History Tobacco Use Types Packs/Day Years [...] on file documented as of this encounter Plan of Treatment Not on file documented as of this encounter Visit Diagnoses Not on filedocumented in this encounter Care Teams Pressroom Worker Relationship Specialty Start Date End Date [facility], [address] [address] PCP - General 01/03/22 documented as of this encounter
[2023-09-04 00:53] LABS: Chlamydia DNA Amplified* NOT DETECTED (No Detected); GC DNA Amplified* NOT DETECTED (No Detected)
== END 2023-09-03 15:24 | disposition home or self-care (01) ==
PROVIDERS: PCP Physician Assistant Medical; Visit Provider Registered Nurse
DX: N92.0 Excessive and frequent menstruation with regular cycle (principal)
CPT/HCPCS: 80061; 82306; 82728; 82947; 83540; 83550; 84443; 86592; 86703; 86803; 87340; 87491; 87591

== ENCOUNTER 2023-10-14 16:15 | Outpatient (CLI) | payer BC, SELFPAY ==
--- NOTE | 2023-10-14 16:00 | CRLHL7_ITS ---
For Patients: As a result of the Century Cures Act, medical imaging exams and procedure reports are released immediately into your electronic medical record. You may view this report before your referring provider. If you have questions, please contact your health care provider. INDICATION: Follow-up fibroids COMPARISON: 12/25/2021 TECHNIQUE: 2D jara scale and color Doppler images were acquired of the pelvis using a transabdominal and transvaginal approach. FINDINGS: Heterogeneous partially exophytic uterine fibroid is present within the right uterine fundus measuring 4.3 x 2.9 x 4.1 cm. Smaller left-sided intramural fibroid is noted with associated calcifications measuring 2.1 x 0.9 x 1.9 cm. Uterus measures 10.2 cm in length by 3.4 cm in AP diameter by 6.3 cm in transverse dimension. The endometrial lining measures 1 mm in composite thickness. The right ovary measures 3.6 x 2.1 x 2.6 cm in size and the left ovary measures 3.3 x 2.4 x 2.9 cm. The ovaries demonstrate normal arterial and venous blood flow on color Doppler analysis. There are no suspicious fluid collections within the cul-de-sac. IMPRESSION: Partially exophytic right fundal fibroid measures 4.3 cm. Left-sided lower uterine segment fibroid noted measures 2.1 cm. Dictated by Levar Ball MD @ 10/16/2023 6:20:58 AM (Electronically Signed)
--- OUTSIDE RECORDS SUMMARY | 2023-10-14 16:18 | XMS_ITS | Clinical Summary ---
Author Organization [facility] Address [address] [place] [address]. [place] [address] Care Team Providers Care Territory Service Representative Name Role Phone Clinic, [facility] Primary Care Provider Quiana Fernández PA-C Unavailable [phone] Veena Oscar APRN CUTTER WET MACHINE Unavailable [phone] Allergies No known active allergies Medications Medication Sig Dispensed Refills Start Date End Date Status ALPRAZolam (XANAX) 0.5 MG tablet Take 1 tablet by mouth 3 times daily as needed for anxiety. 12 tablet 0 01/18/2012 Active Additional Information Patient not taking.Reported on 06/27/2023 Active Problems No known active problems Encounters Date Type Department Care Team Description 10/13/2023 MyC Medical Advice [facility] Gastroenterology Clinic [address] 4th [place] [address] Machelle Flores 09/18/2023 Transcribe Orders GENERIC EXTERNAL DATA DEPARTMENT Provider, Generic External Data Family history of cancer (Primary Dx) 09/09/2023 Transcribe Orders GENERIC EXTERNAL DATA DEPARTMENT Provider, Generic External Data Diarrhea, unspecified type (Primary Dx); Constipation, unspecified constipation type 09/04/2023 Medical Correspondence [facility] Info [facility] [address] [place] [phone] Scan, Non-Provider from Last 3 Months Social History Tobacco [...] Mass Index - - Plan of Treatment Upcoming Encounters Date Type Department Care Team (Late st Contact Info) Description 10/30/2023 PRE VISIT M [facility] Gastroenterology Clinic [address] [phone] Quiana Fernández PA-C [address] [place] [address] Previsit 10/30/2023 8:00 AM CDT Virtual Visit [facility] Gastroenterology Clinic [address] [phone] Veena Oscar APRN [facility] [address] [place] [address] Quiana Fernández PA-C [address] [place] [address] 03/01/2024 2:15 PM PUBLIC FINANCE SPECIALIST [facility] [address] [place] [phone] Veena Oscar APRN [facility] [address] [place] [address] Ana Arora GC Genetic Counseling Graduate Program Office [address] [place] [address] [address] [place] [address] Health Maintenance Due Date Last Done Comments ADVANCE CARE PLANNING 1989 ANNUAL REVIEW OF HM ORDERS 1989 YEARLY PREVENTIVE VISIT 1989 HIV SCREENING 2004 HEPATITIS C SCREENING 09/16/2007 COVID-19 Vaccine ( season) 2022 PHQ-2 (once per calendar year) 2023 INFLUENZA VACCINE (#1) 2023 DTAP/TDAP/TD IMMUNIZATION (8 - Td or Tdap) 08/04/2026 08/04/2016, 01/15/2011, 01/03/2003, Additional history exists PAP 09/02/2026 09/03/2023, 0608/2023, 03/18/2019 IPV IMMUNIZATION Completed 11/14/1991, 07/1991, 03/11/1990, Additional [...] Procedure Name Priority Date/Time Associated Diagnosis Comments LAB RESULT - HIM SCAN 09/03/2023 12:00 AM CDT from Last 3 Months Results * Lab Result - HIM Scan (09/03/2023 12:00 AM CDT) 09/03/2023 Provider Outside NON-BEAKER LAB TE STING from Last 3 Months Care Teams Territory Service Representative Relationship Specialty Start Date End Date Clinic, [facility] [address] [place] [address] [id number] PCP - General 01/03/22 Quiana Fernández PA-C [address] [place] [address] Physician Concrete Pile Driver Operator Gastroenterology 09/11/23 Veena Osacr, SECONDARY ENGLISH TEACHER CUTTER WET MACHINE [facility] [address] [place] [address] Nurse Practitioner anesthesiology physician assistant 09/11/23
--- OUTSIDE RECORDS SUMMARY | 2023-10-14 16:18 | XMS_ITS | Clinical Summary ---
Author Organization [employer] Address [place], [place] [address] Care Team Providers Care Side Seam Envelope Machine Operator Name Role Phone Gemma Hewitt Primary Care Provider [phone] Allergies No known active allergies Medications Medication Sig Dispensed Refills Start Date End Date Status albuterol HFA (PRO-AIR,VENTOLIN,P ROVENTIL) 90 mcg/actuation inhalerIndications: Bronchitis Inhale 2 Puffs by mouth every 4 hours if needed. 1 Inhaler 0 02/21/2015 Active fluticasone (50 mcg per actuation) nasal solution (FLONASE)Indication s:Middle ear effusion, right Inhale 1 Reynolds into both nostrils once daily. 1 Bottle [...] Resolved Date BRONCHITIS - ACUTE 03/17/2005 1 Encounters Date Type Department Care Team Description 09/04/2023 Lab Requisition [facility] [phone] Veena Oscar, LAY BROTHER from Last 3 Months Immunizations Name Administration Dates Next Due DTP [...] Outcome GA Total Labor Labor/2nd/3rd Weight Sex Type Anes PTL Pao A1 A5 Name Clin Current Last Filed Vital Signs Vital Sign Reading Time Taken Comments Blood Pressure 128/62 02/04/2016 12:43 PM CLINIC COORDINATOR Pulse 80 02/04/2016 12:43 PM CLINIC COORDINATOR Temperature 36.9 ??C (98.4 ??F) 07/16/2015 11:42 AM C DT Respiratory Rate 16 04/08/2013 3:58 PM CLINIC COORDINATOR Oxygen Saturation 97% 07/16/2015 11:42 AM CDT Inhaled Oxygen Concentration - - Weight 69.1 kg (152 lb 6.4 oz) 02/04/2016 12:43 PM CLINIC COORDINATOR Height 164.5 cm (5' 4.76) 02/04/2016 12:[address] Body Mass Index 25.55 02/04/2016 12:43 PM CLINIC COORDINATOR Plan of Treatment Health Maintenance Due Date Last Done Comments Depression screening for age 12+ 12/09/2016 12/10/2015, 08/15/2015, 05/28/2015 BMI (ht and wt on same day) for age 18+ 02/03/2017 02/04/2016, 12/10/2015, 06/29/2015, Additional history exists Tetanus booster 01/15/2021 01/15/2011, 01/03/2003 COVID-19 vaccine series ( season) 2022 Influenza for age 9-49 11/29/2023 Pap test for age 21-65 09/02/2026 , 09/03/2023, 03/18/2019, Additional history exists Hepatitis C screening for age 18-79 Completed 01/15/2011 Tdap Completed 01/15/2011 HIV for age 15-65 Completed 02/04/2016, 01/15/2011 Pneumococcal series for age 6-64 Aged Out No longer eligible based on patient's age to complete this topic Procedures Procedure Name Priority Date/Time Associated Diagnosis Comments LAB TRACKING EVENT Routine 09/03/2023 3: 00 PM CDT FIELD SERVICE COORDINATOR THIN PREP PAP SCREEN IMAGED Routine 09/03/2023 3:00 PM CDT HPV THIN PREP Routine 09/03/2023 3:00 PM CDT ANTI HIV 1/2 Routine 02/04/2016 1:14 PM CLINIC COORDINATOR Encounter for supervision of normal first in first trimester ANTI HCV Routine 01/15/2011 2:23 PM CDT Screen for STD (sexually transmitted disease) from Last 3 Months or Most Recently Relevant to Health Maintenance Results * LAB TRACKING EVENT (09/03/2023 3:00 PM CDT) Other (Other) Client Collect / Unknown 09/03/2023 3:00 PM CDT 09/04/2023 3:56 PM CDT Veena Oscar NP LAB BILL ONLY [facility] [address] [place] [address], * FIELD SERVICE COORDINATOR THIN PREP PAP SCREEN IMAGED (09/03/2023 3:00 PM CDT) Case Report Gynecologic Cytology Report ? Case: [id number] ? Authorizing Provider: ??Veena Oscar NP ?? Collected: ? 09/03/2023 1500 ? Ordering Location: ? [facility] ?Received: ?09/07/2023 0743 ? First Screen: ?Baccam, Minie ? Specimen: ?FIELD SERVICE COORDINATOR ThinPrep Vial Screening, Cervical ? 09/11/2023 6:33 PM CDT [facility] INTERPRETATION/ RESULT NEGATIVE FOR INTRAEPITHELIAL LESION OR MALIGNANCY (NIL) (none) 09/11/2023 6:33 PM CDT [facility] NISM(S) Shift in irina suggestive of bacterial vaginosis 09/11/2023 6:33 PM CDT [facility] SPECIMEN ADEQUACY Satisfactory for evaluation Endocervical component present 09/11/2023 6:33 PM CDT [facility] HPV REQUEST HPV and PAP 09/11/2023 6:33 PM CDT [facility] Date of LMP 09/11/2023 6:33 PM CDT [facility] Comment: Last Pap Date 03/18/2019 09/11/2023 6:33 PM CDT [facility] Last Pap Result NIL 6:33 PM CDT [facility] Abnormal Pap or [place] Bx in last 5 years No 09/11/2023 6:33 PM CDT [facility] Menstrual Status Regular Periods 09/11/2023 6:33 PM CDT [facility] [place] Bx Done Today No 09/11/2023 6:33 PM CDT [facility] Additional Information 09/11/2023 6:33 PM CDT [facility] Comment: Interpreted at [facility] - [address], [place] [address] Automated Review Successful 09/11/2023 6:33 PM CDT [facility] Comment:Specimen processed s uccessfully by automated entry level marketing assistant device, ThinPrep Imaging System, [employer] ANCILLARY TESTING FIELD SERVICE COORDINATOR HPV Ordered, Please see separate report 09/11/2023 6:33 PM CDT [facility] Note The pap test is a screening technique, not a diagnostic procedure. It is used primarily to screen for squamous cancers and precursor lesions. Published studies have shown that it is subject to both false negative and false positive results. The pap test should not be used as the sole means to diagnose or exclude pre-malignant and malignant lesions. 09/11/2023 6:33 PM CDT [facility] Other (Cervical) 09/03/2023 3:00 PM CDT 09/07/2023 7:43 AM CDT Veena Oscar NP PATHOLOGY/CYTOLOG Y Performing Organization Address [facility] de Phone Number [facility] [address] [place] [address], * HPV HIGH RISK (09/03/2023 3:00 PM CDT) TYPE 16 Negative Negative 09/08/2023 2:47 PM CDT [facility] TYPE 18 Negative Negative 09/08/2023 2:47 PM CDT [facility] OTHER HIGH RISK TYPES Negative Negative 09/08/2023 2:47 PM CDT [facility] Other (Cervical) 09/03/2023 3:00 PM CDT 09/07/2023 7:43 AM CDT Narrative [facility] - 09/08/2023 2:47 PM CDT HPV types 16, 18, 31, 33, 35, 39, 45, 51, 52, 56, 58, 59, 66 and 68 DNA were undetectable or below the pre-set threshold. Methodology: Otilia Shahab 4800 HPV Test Veena Oscar NP MICROBIOLOGY Performing Organization Address [facility] Co de Phone Number [facility] [address] [place] [address], [place] * ANTI HIV 1/2 (02/04/2016 1:14 PM CLINIC COORDINATOR) HIV-1/HIV-2 ANTIBODY Non-Reacti ve Non-Reacti ve 02/04/2016 7:19 PM CLINIC COORDINATOR [facility] Blood BLOOD SPECIMEN / Unknown Venipuncture / Unknown 02/04/2016 1:14 PM CLINIC COORDINATOR 02/04/2016 1:14 PM CLINIC COORDINATOR Narrative [facility] - 02/04/2016 7:19 PM CLINIC COORDINATOR HIV-1 p24 and HIV-1/HIV-2 Ab not detected Corrie Monreal MD [facility] [address] [place] [address], * ANTI HCV (01/15/2011 2:23 PM CDT) ANTI HCV Non-reacti ve [facility] Blood specimen (specimen) BLOOD SPECIMEN / Unknown 01/15/2011 2:23 PM CDT 01/15/2011 2:21 PM CDT Destiney Jasso MD SEND OUT[facility] INTERNAL ZIP [address] [address] from Last 3 Months or Most Recently Relevant to Health Maintenance Care Teams Side Seam Envelope Machine Operator Relationship Specialty [place] [address] [place] [address] PCP - General Family Practice 11/22/15
--- OUTSIDE RECORDS SUMMARY | 2023-10-14 16:18 | XMS_ITS | Encounter Summary ---
Author Organization [facility] Address [facility] [place] [address] Care Team Providers Care River Guide Name Role Phone Clinic, [facility] Primary Care Provider Quiana Fernández PA-C Unavailable [phone] Veena Oscar APRN, CNP Unavailable [phone] Reason for Referral * Consultation (Routine: Next available opening) - Pending Review Specialty Diagnoses / Procedures Referred By Carmelo shields Referred To Contact Medical Oncology Diagnoses Family history of cancer Veena Oscar APRN CNP [facility] [address] [place] [address] Referral ID Status Reason Start Date Expiration Date V isits Requested Visits Authorized [id number] Pending Review 09/18/2023 09/17/2024 1 1 Question Answer My Clinical Question Is: Family hx of cancer If you have additional clinical questions which require a provider discussion, please call [phone]. Ask for the Chemo only medicine physician. Reason for Referral: Risk Management/Genetic Counseling Scheduling Instructions: [facility] will call you to coordinate your care as prescribed by the provider. If you don? t hear from a physician relations representative within 2 business days, please call Additional Information: Family hx of cancer. Refer by Veena Oscar CNP of [facility] Comments E-mail:Family hx of cancer. Refer by Veena Oscar CNP of [facility] will call you to coordinate your care as prescribed by the provider. If you don? t hear from a physician relations representative within 2 business days, please call Encounter Details Date Type Department Care Team (Late st Contact Info) Description 09/18/2023 Transcribe Orders GENERIC EXTERNAL DATA DEPARTMENT Provider, Generic External Data Family history of cancer (Primary Dx) Social History Tobacco Use Types Packs/Day Years [...] as of this encounter Plan of Treatment Upcoming Encounters Date Type Department Care Team (Late st Contact Info) Description 10/30/2023 PRE VISIT [facility] Gastroenterology Clinic [address] [phone] Quiana Fernández PA-C [address] [place] [place] [address] Previsit 10/30/2023 8:00 AM CDT Virtual Visit [facility] Gastroenterology Clinic [address] [phone] Veena Oscar APRN CNP [facility] [address] [place] [address] Quiana Fernández PA-C [address] [place] [address] 03/01/2024 2:15 PM CORRUGATED FASTENER DRIVER Virtual Visit [facility] [address] [place] [phone] Veena Oscar APRN CNP [facility] [address] [place] [address] Ana Arora GC Genetic Counseling Graduate Program Office [address] [place] [address] [address] [place] [address] Scheduled Referrals Name Type Priority Associated Diagnoses Orde r Schedule Adult Oncology/Hematology Metallurgy Laboratory Technician Referral Referral Routine Family history of cancer Ordered: 09/18/2023 documented as of this encounter Visit Diagnoses Diagnosis Family history of cancer- Primary Family history of unspecified malignant neoplasm documented in this encounter Care Teams River Guide Relationship Specialty Start Date End Date Clinic, [address] [address] PCP - General 01/03/22 Quiana Fernández PA-C [address] [place] [address] Physician Health Coordinator Gastroenterology 09/11/23 Veena Oscar APRN LEASING COORDINATOR [facility] [address] [place] [address] Nurse Practitioner wool fleece sorter 09/11/23 documented as of this encounter
--- OUTSIDE RECORDS SUMMARY | 2023-10-14 16:18 | XMS_ITS | Encounter Summary ---
Author Organization [facility] Address [address] [place] [address] Care Team Providers Care Car Pick Up Driver Name Role Phone Clinic, [facility] Primary Care Provider Reason for Referral * Consultation (Urgent) - Pending Review Specialty Diagnoses / Procedures Referred By Contmelquiades t Referred To Contact Gastroenterology Diagnoses Diarrhea, unspecified type Constipation, unspecified constipation type Veena Oscar APRN CNP [facility] [address] [place] [address] Referral ID Status Reason Start Date Expiration Date V isits Requested Visits Authorized [id number] Pending Review 09/09/2023 09/08/2024 1 1 Question Answer Reason for Referral: General GI Scheduling Instructions: [facility] will call you to coordinate your care as prescribed by the provider. If you don? t hear from a customer assistance representative within 2 business days, please call . Comments Referral Transcribed by external fax Provider: VEENA OSCAR affiliated with [facility]. VA: No If yes was is the VA Authorization Number: Phone number: [phone] Fax number: [phone] [facility] will call you to coordinate your care as prescribed by the provider. If you don? t hear from a customer assistance representative within 2 business days, please call . Encounter Details Date Type Department Care Team (Late st Contact Info) Description 09/09/2023 Transcribe Orders GENERIC EXTERNAL DATA DEPARTMENT Provider, Generic External Data Diarrhea, unspecified type (Primary Dx); Constipation, unspecified constipation type Social History Tobacco Use Types Packs/Day Years [...] st Contact Info) Description 10/30/[address] [facility] Gastroenterology Clinic [address] [phone] Quiana Fernández PA-C [address] [place] [address] [phone] Previsit 10/30/2023 8:00 AM CDT Virtual Visit [facility] [address] [phone] Veena Oscar APRN [facility] [address] [place] [address] Quiana Fernández PA-C [address] [place] [address] 676194 03/01/2024 2:15 PM PIGEON FANCIER Virtual Visit [facility] [address] [place] [phone] Veena Oscar APRN [facility] [address] [place] [address] Ana Arora GC Genetic Counseling Graduate Program Office [address] [place] [address] [address] [place], [place] [address] Scheduled Referrals Name Type Priority Associated Diagnoses Orde r Schedule Adult GI Tape Fastener Machine Operator Referral - Consult Only Referral Routine Diarrhea, unspecified type Constipation, unspecified constipation type Expected: 09/09/2023 (Approximate), Expires: 09/08/2024 documented as of this encounter Visit Diagnoses Diagnosis Diarrhea, unspecified type- Primary Constipation, unspecified constipation type documented in this encounter Care Teams Car Pick Up Driver Relationship Specialty Start Date End Date [facility], [place] [id number] PCP - General 01/03/22 documented as of this encounter
--- OUTSIDE RECORDS SUMMARY | 2023-10-14 16:18 | XMS_ITS | Encounter Summary ---
Author Organization [facility] Address [address] [place] [address]. [place] [address] Care Team Providers Care Flexographic Printing Press Operator Name Role Phone Delmis Wang MD Primary Care Provider [phone] [facility], [facility] Primary Care Provider Quiana Fernández PA-C Unavailable [phone] Veena Oscar GUEST HOUSE MANAGER YOUTH COORDINATOR Unavailable [phone] Encounter Details Date Type Department Care Team ([facility] Contact Info) Description 03/15/2014 Telephone [facility] Behavioral Health Intake [address] [place] [phone] Generic, Behavioral Intake, Social History Tobacco Use [...] Calling for cd evaluation. Previous treatment at [facility]/ 8 years ago. Says she had a dwi 10/09. On probation. Meds: hx of zoloft, takes ativan prn. Lives with father. kab OR IT ARCHITECT documented in this encounter Plan of Treatment Upcoming Encounters Date Type Department Care Team ([facility] Contact Info) Description 10/30/2023 PRE VISIT [facility] Gastroenterology Clinic [address] [phone] Quiana Fernández PA-C [address] [place] [address] Previsit 10/30/2023 8:00 AM CDT Virtual Visit [facility] Gastroenterology Clinic [address] [phone] Veena Oscar APRN [address] [address] Quiana Fernández PA-C [address] [place] [address] 03/01/2024 2:15 PM SENIOR IT ARCHITECT Virtual Visit [facility] [address] [phone] Veena Oscar APRN [address] [address] Ana Arora Genetic Counseling Graduate Program Office [address] [place] [address] [address] [place] [address] documented as of this encounter Visit Diagnoses Not on filedocumented in this encounter Care Teams Flexographic Printing Press Operator Relationship Specialty Start Date End Date Delmis Wang MD PCP - General 01/18/12 01/02/22 [facility], [address] [address] PCP - General 01/03/22 Quiana Fernández PA-C [address] [place] [address] Physician Screw Machine Hand Gastroenterology 09/11/23 Veena Oscar APRN [facility] [address] [place], [place] [phone] Nurse Practitioner dietary service aide 09/11/23 documented as of this encounter
--- OUTSIDE RECORDS SUMMARY | 2023-10-14 16:18 | XMS_ITS | Referral Summary ---
Author Organization [facility] Address [address] [place] [address]. [place] [address] Care Team Providers Care Shot Peening Operator Name Role Phone Clinic, [facility] Primary Care Provider Quiana Fernández PA-C Unavailable [phone] Veena Oscar APRN INSPECTOR MULTIFOCAL LENS Unavailable [phone] Encounters Date Type Department Care Team Description 10/13/2023 MyC Medical Advice [facility] Gastroenterology Clinic [address] 4th [place] [phone] Machelle Flores 09/18/2023 Transcribe Orders GENERIC EXTERNAL DATA DEPARTMENT Provider, Generic External Data Family history of cancer (Primary Dx) 09/09/2023 Transcribe Orders GENERIC EXTERNAL DATA DEPARTMENT Provider, Generic External Data Diarrhea, unspecified type (Primary Dx); Constipation, unspecified constipation type 09/04/2023 Medical Correspondence [facility] [address] [place] [phone] Scan, Non-Provider from Last 3 Months Allergies No known [...] Contact Info) Description 10/30/2023 PRE VISIT M [facility] Clinic [address] [phone] Quiana Fernández PA-C [address] [place] [address] Previsit 10/30/2023 8:00 AM CDT Virtual Visit [facility] Clinic [address] [phone] Veena Oscar APRN [facility] [address] [place] [address] Quiana Fernández PA-C [address] [place] [address] 03/01/2024 2:15 PM FINANCIAL SALES MANAGER [facility] [address] [place] [address] [phone] Veena Oscar APRN [facility] [address] [place] [address] Ana Arora GC Genetic Counseling Graduate Program Office [address] [place] [address] [phone] [place], [place] 8[address] Procedures Procedure Name Priority Date/Time Associated Diagnosis Comments LAB RESULT - HIM SCAN 09/03/2023 12:00 AM CDT from Last 3 Months Results * Lab Result - HIM Scan (09/03/2023 12:00 AM CDT) 09/03/2023 Provider Outside NON-BEAKER LAB TE STING from Last 3 Months Care Teams Shot Peening Operator Relationship Specialty Start Date End Date [facility], [address] [phone] PCP - General 01/03/22 Quiana Fernández PA-C [address] [place] [phone] Physician Office Correspondent Gastroenterology 09/11/23 Veena Oscar APRN INSPECTOR MULTIFOCAL LENS [facility] [address] [place] [address] Nurse Practitioner cutter grinder 09/11/23
--- OUTSIDE RECORDS SUMMARY | 2023-10-14 16:18 | XMS_ITS | Encounter Summary ---
Author Organization [place] Address [address] [place] [address]. [place] [address] Care Team Providers Care Automatic Log Cut Off Sawyer Name Role Phone Clinic, [facility] Primary Care Provider Quiana Fernández PA-C Unavailable [phone] Veena Oscar APRN RAND SEWER Unavailable [phone] Encounter Details Date Type Department Care Team (Late st Contact Info) Description 10/13/2023 MyC Medical Advice [facility] [address] [phone] Machelle Flores Social History Tobacco Use Types Packs/Day Years [...] st Contact Info) Description 10/30/2023 PRE VISIT [facility] [address] [phone] Quiana Fernández PA-C [address] [place] [phone] Previsit 10/30/2023 8:00 AM CDT Virtual Visit [facility] [address] [phone] Veena Oscar APRN CNP [facility] [address] [place] [address] Quiana Fernández PA-C [address] [place] [address] 03/01/2024 2:15 PM MAINTENANCE PAINTER APPRENTICE Virtual Visit [facility] [address] [place] [phone] Veena Oscar APRN CNP [facility] [address] [place] [address] Ana Arora Genetic Counseling Graduate Program Office [address] [place] [address] [phone] [place] [address] documented as of this encounter Visit Diagnoses Not on filedocumented in this encounter Care Teams Automatic Log Cut Off Sawyer Relationship Specialty Start Date End Date Clinic, [address] [address] PCP - General 01/03/22 Quiana Fernández PA-C [address] [place] [address] Physician Coil [facility] Gastroenterology 09/11/23 Veena Oscar APRN CNP [facility] [address] [place] [address] Nurse Practitioner assembler final 09/11/23 documented as of this encounter
--- OUTSIDE RECORDS SUMMARY | 2023-10-14 16:18 | XMS_ITS | Encounter Summary ---
Author Organization [place] Address [address] [place] [address]. [place] [address] Care Team Providers Care Technical Illustrations Map Inker Name Role Phone Clinic, [facility] Primary Care Provider Encounter Details Date Type Department Care Team (Late Contact Info) Description 09/04/2023 Medical Correspondence [facility] [address] [place] [phone] Scan, Non-Provider Social History Tobacco Use Types Packs/Day Years [...] Upcoming Encounters Date Type Department Care Team ([facility] Contact Info) Description 10/30/2023 PRE VISIT [facility] [address] [phone] Quiana Fernández PA-C [address] [place] [address] [phone] Previsit 10/30/2023 8:00 AM CDT Virtual Visit [facility] [address] [phone] Veena Oscar, [facility] [address] [place] [address] Quiana Fernández PA-C [address] [place] [address] 03/01/2024 2:15 PM SOLOIST DANCER Virtual Visit [facility] [address] [place] [phone] Veena Oscar APRN [facility] [address] [place] [address] Ana Arora GC Genetic Counseling Graduate Program Office [address] [place] [address] [phone] [place] [address] documented as of this encounter Visit Diagnoses Not on filedocumented in this encounter Care Teams Technical Illustrations Map Inker Relationship Specialty Start Date End Date Clinic, [address] [address] PCP - General 01/03/22 documented as of this encounter
--- OUTSIDE RECORDS SUMMARY | 2023-10-14 16:18 | XMS_ITS | Encounter Summary ---
Author Organization [place] Address Formerly [facility] [place] [address] Care Team Providers Care Airline Pilot Name Role Phone [facility] Primary Care Provider Reason for Visit * Reason Onset Date Comments Results 06/29/2023 Encounter Details Date Type Department Care Team (Late st Contact Info) Description 06/29/2023 Telephone [facility] [place] [address] [place] [phone] [facility] [address] [place] [address] [phone] Results Social History Tobacco Use Types Packs/Day [...] PCR Not Detected Detected Abnormal Advised patient comic book writer will route the message to [facility] Patient would like a call back when rx is done documented in this encounter Plan of Treatment Upcoming Encounters Date Type Department Care Team ([facility] st Contact Info) Description 10/30/2023 PRE VISIT [facility] [address] [phone] Quiana Fernández PA-C [address] [place] [phone] Previsit 10/30/2023 8:00 AM CDT Virtual Visit [facility] Gastroenterology [address] [phone] Veena Oscar APRN [facility] [address] [place] [address] Quaina Fernández PA-C [address] [place] [phone] 03/01/2024 2:15 PM MASTER IN CHANCERY Virtual Visit [facility] [address] [phone] Veena Oscar APRN [facility] [address] [place] [address] Ana Arora GC Genetic Counseling Graduate Program Office [address] [place] [address] [phone] [place], [place] [phone] documented as of this encounter Visit Diagnoses Not on filedocumented in this encounter Care Teams Airline Pilot Relationship Specialty Start Date End Date Clinic, [address] [id number] PCP - General 01/03/22 documented as of this encounter
== END 2023-10-14 16:16 | disposition home or self-care (01) ==
LOC: US 16:16
PROVIDERS: PCP Physician Assistant Medical; Visit Provider Registered Nurse
DX: D25.9 Leiomyoma of uterus, unspecified (principal)
CPT/HCPCS: 76830; 76856

== ENCOUNTER 2024-03-08 11:48 | Emergency (ER) | payer OTHER, SELFPAY ==
[2024-03-08 11:58] VITALS: BP 137/84; PULSE 94; RESP 18; TEMP 36.9; O2SAT 100; BMI 25.0
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
--- NOTE | 2024-03-08 12:36 | CRLHL7_ITS ---
For Patients: As a result of the Century Cures Act, medical imaging exams and procedure reports are released immediately into your electronic medical record. You may view this report before your referring provider. If you have questions, please contact your health care provider. INDICATION: Injury to top of head 5 days ago. Headache.. TECHNIQUE: CT head without contrast. COMPARISON: None. FINDINGS: CSF spaces: Within normal limits for age. Brain parenchyma and extra-axial spaces: The jara-white differentiation is normal. No sign of mass, hemorrhage, or midline shift. No extra-axial fluid collection. Skull base and calvarium: The visualized paranasal sinuses and mastoid air cells demonstrate no acute or significant findings. The visualized orbits are grossly unremarkable. No skull fractures. IMPRESSION: Unremarkable noncontrast head CT. Please note that all CT scans at this facility use dose modulation, iterative reconstruction, and/or weight-based dosing when appropriate to reduce radiation dose to as low as reasonably achievable. Dictated by Percy Mari MD @ 03/08/2024 1:24:38 PM (Electronically Signed)
--- NOTE | 2024-03-08 12:36 | CRLHL7_ITS ---
For Patients: As a result of the Cures Act, medical imaging exams and procedure reports are released immediately into your electronic medical record. You may view this report before your referring provider. If you have questions, please contact your health care provider. INDICATION: Facial injury. TECHNIQUE: CT maxillofacial without contrast. COMPARISON: None. FINDINGS: Facial bones: No fractures or bone lesions. Specifically the nasal bones, temporomandibular joints, maxilla and mandible appear intact. Orbits and globes: Unremarkable. Globes are intact. No sign of intraorbital hemorrhage or emphysema. Sinuses: No acute or significant findings. Soft tissues: Unremarkable. IMPRESSION: Negative facial CT. No sign of acute injury. Please note that all CT scans at this facility use dose modulation, iterative reconstruction, and/or weight-based dosing when appropriate to reduce radiation dose to as low as reasonably achievable. Dictated by Percy Mari MD @ 03/08/2024 1:38:40 PM (Electronically Signed)
--- OUTSIDE RECORDS SUMMARY | 2024-03-08 13:13 | XMS_ITS | Encounter Summary ---
Author Organization [place] Address [facility] [place] [address] Care Team Providers Care Geomagnetician Name Role Phone Clinic, [facility] Primary Care Provider Quiana Fernández PA-C Unavailable [phone] Veena Oscar APRN DAMAGE INSIDE ADJUSTER Unavailable [phone] Quaina Fernández PA-C Unavailable [phone] Reason for Visit * Reason Onset Date Comments *-*INCOMING RECORDS*-* 03/01/2024 Family hi story of cancer [Z80.9] Encounter Details Date Type Department Care Team ([facility] st Contact Info) Description 03/01/[address] [facility] [address] [place] [address] Ana Arora GC Genetic Counseling Graduate Program Office [address] [place] [address] [phone] [place] [phone] *-*INCOMING RECORDS*-* (Family history of cancer [Z80.9] //) Social History Tobacco Use Types Packs/Day Years Used Date Smoking Tobacco: Every Day Cigarettes Alcohol Use Standard Drinks/Week Comments Yes 0 (1 standard drink = 0.6 oz pur e alcohol) PHQ-2 Answer Date Recorded PHQ-2 Score 5 10/30/2023 Adolescent Education Answer Date Record ed Getting School Help Needed Not on file 12/19 Comments Unknown Sex and Gender Information Value Date Recorded Sex Assigned at Not on file Legal Sex Female 5:19 AM COACH MECHANIC Gender Identity Not on file Sexual Orientation Not on file documented as of this encounter Miscellaneous Notes * Telephone Encounter - Jefry Eagle - 12/03/2023 4:08 PM CDT RECORDS STATUS - RISK MANAGEMENT RECORDS RECEIVED FROM: Jenn Paniagua NOTES STATUS DETAILS OFFICE NOTE from referring provider Arcelia Oscar NP MEDICATION LIST Epic LABS PATHOLOGY REPORTS ONLY ANYTHING RELATED TO DIAGNOSIS Epic 11/10/2023 documented in this encounter Plan of Treatment Upcoming Encounters Date Type Department Care Team (Late st Contact Info) Description 06/14/2024 10:30 AM CDT Office Visit [facility] [address] [place] [phone] Quiana Fernández PA-C [address] [place] [address] [phone] documented as of this encounter Visit Diagnoses Not on filedocumented in this encounter Additional Health Concerns Assessment Noted Time PHQ-9 Depression Total Score: 16 024 7:58 AM CDT documented as of this encounter Care Teams Geomagnetician Relationship Specialty Start Date End Date Clinic, [address] [phone] PCP - General 01/03/22 Quiana Fernández PA-C [address] [place] [address] Physician Special Delivery Mail Carrier Gastroenterology 09/11/23 Veena Oscar APRN DAMAGE INSIDE ADJUSTER [facility] [address] [place] [phone] Nurse Practitioner computer programmer analyst 09/11/23 Quiana Fernández PA-C [address] [place] [address] Assigned Gastroenterology Provider 11/20/23 documented as of this encounter
--- OUTSIDE RECORDS SUMMARY | 2024-03-08 13:13 | XMS_ITS | Clinical Summary ---
Author Organization [place] Address [facility] [place] [address] Care Team Providers Care Machine Sizer Name Role Phone [facility], [facility] Primary Care Provider Quiana Fernández PA-C Unavailable [phone] Veena Oscar PALS SPECIALIST MIXING MACHINE TENDER CORK ROD Unavailable [phone] Quiana Fernández PA-C Unavailable [phone] Allergies Active Allergy Reactions Criticality Noted Date Comments Amoxicillin Hives High 07/23/2023 Medications ALPRAZolam (XANAX) 0.5 MG tablet Take 1 tablet by mouth 3 times daily as needed for anxiety. 12 tablet 0 2 Active Additional Information Patient not taking.Reported on 06/27/2023 famotidine (PEPCID) 20 MG tabletIndication s:Heartburn,Ray roesophageal reflux disease with esophagitis, unspecified whether hemorrhage Take 1 tablet (20 mg) by mouth 2 times daily as needed (heartburn) 60 tablet 5 4 Active methylcellulose (CITRUCEL) powderIndication s:Diarrhea, unspecified type,Constipatio n, unspecified constipation type Take 2 g by mouth daily Start with 1/2 Tbs per day mixed with large glass or water. Slowly increase to 1-2 Tbs daily as tolerated. 454 g 2 4 Active Active Problems No known active problems Encounters Date Type Department Care Team Description 03/01/2024 2:15 PM MANAGER EDUCATIONAL Virtual Visit [facility] [address] [phone] Veena Oscar APRN CNP Michel, Olivia Jeannine, GC Family history of prostate cancer (Primary Dx); Family history of malignant neoplasm of breast; Family history of colon cancer 03/01/2024 PRE VISIT [facility] [address] [phone] Ana Arora GC *-*INCOMING RECORDS*-* (Family history of cancer [Z80.9] //) 02/24/2024 MyC Medical Advice [facility] Virtual Care [address] [place] [phone] Dennis [place] 01/27/2024 Telephone [facility] Gastroenterology [facility] [address] 4th [place] [phone] Quiana Fernández PA-C Appointment (Rescheduling needed for 04/13/24 appointment ) from Last 3 Months Social History Tobacco [...] on file Legal Sex Female 5:19 AM MANAGER EDUCATIONAL Gender Identity Not on file Sexual Orientation Not on file Last Filed Vital Signs Vital Sign Reading Time Taken Comments Blood Pressure 146/97 06/27/2023 2:40 PM CDT Pulse 107 06/27/2023 2:40 PM CDT Temperature 36.6 C (97.8 F) 06/27/2023 2:40 PM CDT Respiratory Rate 16 06/27/2023 2:40 PM CDT Oxygen Saturation 99% 06/27/2023 2:40 PM CDT Inhaled Oxygen Concentration - - Weight 66.7 kg (147 lb) 10/30/2023 7:53 AM CDT Height 166.4 cm (5' 5.5) 10/30/2023 7:53 AM CDT Body Mass Index 24.09 10/30/2023 7:53 AM CDT Plan of Treatment Upcoming Encounters Date Type Department Care Team (Late st Contact Info) Description 06/14/2024 10:30 AM CDT Office Visit [facility] Gastroenterology [facility] [place] [address] 4th [place] [address] Quiana Fernández PA-C [address] [place] [address] Health Maintenance Due Date Last Done Comments ADVANCE CARE PLANNING 1989 ANNUAL REVIEW OF HM ORDERS 1989 NICOTINE/TOBACCO CESSATION COUNSELING Q 1 YR 1989 YEARLY PREVENTIVE VISIT 1989 Pneumococcal Vaccine: Pediatrics (0 to 5 Years) and At-Risk Patients (6 to 64 Years) (1 of 2 - PCV) 09/16/1995 COVID-19 Vaccine ( - season) 2023 INFLUENZA VACCINE (#1) 2023 DTAP/TDAP/TD IMMUNIZATION (8 - Td or Tdap) 08/04/2026 08/04/2016, 01/15/2011, 01/03/2003, Additional history exists PAP 09/02/2026 09/03/2023, 06/08/2023, 03/18/2019 RSV VACCINE (1 - 1-dose 75+ series) 2064 HEPATITIS B IMMUNIZATION Completed 003, 12/22/2001, 11/17/2001 HPV IMMUNIZATION Completed 07/25/2011, , 01/15/2011 HEPATITIS C SCREENING Completed 09/03/2023 HIV SCREENING Completed 09/03/2023 PHQ-2 (once per calendar year) Completed 10/30/2023, 10/30/2023 MENINGITIS IMMUNIZATION Aged Out No l onger eligible based on patient's age to complete this topic RSV MONOCLONAL ANTIBODY Aged Out No l onger eligible based on patient's age to complete this topic Procedures Procedure Name Priority Date/Time Associated Diagnosis Comments ABSTRACT HIV Routine 09/03/2023 4:04 PM CDT HEPATITIS C (HIM EXTERNAL RESULT) Routine 09/03/2023 4:04 PM CDT from Last 3 Months or Most Recently Relevant to Health Maintenance Results * ABSTRACT HIV (09/03/2023 4:04 PM CDT) HIV 1&2 EXT Non-Reacti ve [facility] Blood 09/03/2023 4:04 PM CDT [facility] - 09/03/2023 4:04 PM CDT [facility]- External Lab Results us Provider Outside LAB - HIM EXTERNAL RESULT Edite d Result - Final [facility] [address] [place] [address], [facility] [phone] * Hepatitis C (HIM External Result) (09/03/2023 4:04 PM CDT) Hep C HIM See Scanned Document [facility] 09/03/2023 4:04 PM CDT [facility] - 09/03/2023 4:04 PM CDT [facility]- External Lab Results us Provider Outside LAB - [facility] EXTERNAL RESULT Edite d Result - Final [facility] [address] [place] [address], [facility] [phone] from Last 3 Months or Most Recently Relevant to Health Maintenance Insurance [id number] [address] [employer] [place] Animated Speech [facility] Care Teams Machine Sizer Relationship Specialty Start Date End Date Clinic, [address] [address] PCP - General 01/03/22 Quiana Fernández PA-C [address] [place] [address] Physician Stripping Shovel Operator Gastroenterology 09/11/23 Veena Oscar APRN MIXING MACHINE TENDER CORK ROD [facility] [address] [place] [address] Nurse Practitioner sfdc consultant 09/11/23 Quiana Fernández PA-C [address] [place] [address] Assigned Gastroenterology Provider 11/20/23
--- OUTSIDE RECORDS SUMMARY | 2024-03-08 13:13 | XMS_ITS | Clinical Summary ---
Author Organization [employer] [facility] [employer] Address [place], [place] [address] Care Team Providers Care Barrel Assembly Inspector Name Role Phone Gemma Hewitt DO Primary Care Provider Allergies No known active allergies Medications albuterol HFA (PRO-AIR,VENTOLI N,PROVENTIL) 90 mcg/actuation inhalerIndicatio ns:Bronchitis Inhale 2 Puffs by mouth every 4 hours if needed. 1 Inhaler 0 5 Active fluticasone (50 mcg per actuation) nasal solution (FLONASE)Indicat ions:Middle ear effusion, right Inhale 1 [place] into both nostrils once daily. 1 Bottle 0 6 Active citalopram (CELEXA) 40 mg tabletIndication s:Adjustment disorder with depressed mood TAKE ONE TABLET BY MOUTH EVERY DAY - DISCONTINUE 20 MG TABLETS 90 tablet 1 6 Active LORazepam (ATIVAN) 1 mg tabletIndication s:Adjustment disorder with mixed anxiety and depressed mood 1 oral twice daily as needed anxiety attacks 15 tablet 0 6 Active traZODone (DESYREL) 100 mg tabletIndication s:Anxiety Take 1 tablet oral at bedtime for sleep 180 tablet 1 6 Active VITAMIN PLUS LOW IRON 27 mg iron- 1 mg tabletIndication s:Encounter for supervision of normal first in first trimester TAKE ONE TABLET BY MOUTH EVERY DAY 100 tablet 3 8 Active Active Problems Problem Noted Date Diagnosed Date Encounter for supervision of normal first pregna ncy 02/04/2016 Vitamin D deficiency 03/28/2013 Overweight(278.02) 01/13/2013 Abnormal Pap smear 01/13/2013 BALWINDER I (cervical intraepithelial neoplasia I) Overview (01/16/2011): 03/2009: Pap LGSIL 05/2009: Colpo BALWINDER 1 01/07: Pap and HPV pending Tobacco use disorder 08/19/2006 HPV (human papilloma virus) infection Overview (01/25/2013): needs colp Cervical high risk HPV (human papillomavirus) te st positive Overview (07/10/2015): Plan: Routine Screening Comments Yes Resolved Problems [...] at Not on file Legal Sex Female 5:27 AM EMTS Gender Identity Not on file Sexual Orientation Not on file 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 Not on file Not on file Obstetrics History Para Term AB IAB SAB Ectopic Multiple Livin g Live Births 1 0 0 0 0 0 0 0 0 0 Date Outcome GA Total Labor Labor/2nd/3rd Weight Sex Type Anes PTL Pao A1 A5 Name Clin Current Last Filed Vital Signs Vital Sign Reading Time Taken Comments Blood Pressure 128/62 02/04/2016 12:43 PM EMTS Pulse 80 02/04/2016 12:43 PM EMTS Temperature 36.9 C (98.4 F) 07/16/2015 11:42 AM CDT Respiratory Rate 16 04/08/2013 3:58 PM EMTS Oxygen Saturation 97% 07/16/2015 11:42 AM CDT Inhaled Oxygen Concentration - - Weight 69.1 kg (152 lb 6.4 oz) 02/04/2016 12:43 PM EMTS Height 164.5 cm (5' 4.76) 02/04/2016 12:[address] Body Mass Index 25.55 02/04/2016 12:43 PM EMTS Plan of Treatment Health Maintenance Due Date Last Done Comments Depression screening for age 12+ 12/09/2016 12/10/2015, 08/15/2015, 05/28/2015 BMI (ht and wt on same day) for age 18+ 02/03/2017 02/04/2016, 12/10/2015, 06/29/2015, Additional history exists Tetanus booster 01/15/2021 01/15/2011, 01/03/2003 COVID-19 vaccine series ( season) 2023 Influenza for age 9-49 11/29/2023 Pap test for age 21-65 09/02/2026 , 09/03/2023, 03/18/2019, Additional history exists RSV vaccine for adults or (1 - 1-dose 75+ series) 2064 Hepatitis C screening for age 18-79 Completed 01/15/2011 Tdap Completed 01/15/2011 HIV for age 15-65 Completed 02/04/2016, 01/15/2011 Pneumococcal series for age 6-64 Aged Out No longer eligible based on patient's age to complete this topic Procedures Procedure Name Priority Date/Time Associated Diagnosis Comments HPV HIGH RISK Routine 09/03/2023 3:00 PM CDT ANTI HIV 1/2 Routine 02/04/2016 1:14 PM EMTS Encounter for supervision of normal first in first trimester ANTI HCV Routine 01/15/2011 2:23 PM CDT Screen for STD (sexually transmitted disease) from Last 3 Months or Most Recently Relevant to Health Maintenance Results * HPV HIGH RISK (09/03/2023 3:00 PM CDT) TYPE 16 Negative Negative 09/08/2023 2:47 PM CDT [facility] TYPE 18 Negative Negative 09/08/2023 2:47 PM CDT [facility] OTHER HIGH RISK TYPES Negative Negative 09/08/2023 2:47 PM CDT [facility] Other (Cervical) 09/03/2023 3:00 PM CDT 09/07/2023 7:43 AM CDT Narrative [facility] - 09/08/2023 2:47 PM CDT HPV types 16, 18, 31, 33, 35, 39, 45, 51, 52, 56, 58, 59, 66 and 68 DNA were undetectable or below the pre-set threshold. Methodology: Otilia Shahab 4800 HPV Test us Veena Oscar NP MICROBIOLOGY Final Res ult [facility] [address] [place] [address], * ANTI HIV 1/2 (02/04/2016 1:14 PM EMTS) HIV-1/HIV-2 ANTIBODY Non-Reacti ve Non-Reacti ve 02/04/2016 7:19 PM EMTS [facility] Blood BLOOD SPECIMEN / Unknown Venipuncture / Unknown 02/04/2016 1:14 PM EMTS 02/04/2016 1:14 PM EMTS Narrative [facility] - 02/04/2016 7:19 PM EMTS HIV-1 p24 and HIV-1/HIV-2 Ab not detected us Corrie Monreal MD SEND OUTS Final R esult [facility] [address] [place] [address], [place] * ANTI HCV (01/15/2011 2:23 PM CDT) ANTI HCV Non-reacti ve [facility] Blood specimen (specimen) BLOOD SPECIMEN / Unknown 01/15/2011 2:23 PM CDT 01/15/2011 2:21 PM CDT us Destiney Jasso MD SEND OUTS Final Result [facility] [place]NAL ZIP [address] [address] from Last 3 Months or Most Recently Relevant to Health Maintenance Insurance MEDICAID [facility] Care Teams Barrel Assembly Inspector Relationship Specialty [place] [address] [place] [address] PCP - General Family Practice 11/22/15
--- OUTSIDE RECORDS SUMMARY | 2024-03-08 13:13 | XMS_ITS | Encounter Summary ---
Author Organization [place] Address [facility] [place] [address] Care Team Providers Care Possum Trapper Name Role Phone Clinic, [facility] Primary Care Provider Quiana Fernández PA-C Unavailable [phone] Veena Oscar APRN TELEVISION PROGRAM DIRECTOR Unavailable [phone] Quiana Fernández PA-C Unavailable [phone] Reason for Visit * Reason Onset Date Comments Appointment 01/27/2024 Rescheduling nee ded for 04/13/24 appointment Encounter Details Date Type Department Care Team (Late st Contact Info) Description 01/27/2024 Telephone [facility] Gastroenterology Clinic [address] 4th [place] [address] Quiana Fernández PA-C [address] [place] [address] Appointment (Rescheduling needed for 04/13/24 appointment ) Social History Tobacco Use Types Packs/Day Years [...] on file Legal Sex Female 5:19 AM CONSTRUCTION ESTIMATOR Gender Identity Not on file Sexual Orientation Not on file documented as of this encounter Miscellaneous Notes * Telephone Encounter - Alyssa Berrios - 01/29/2024 11:23 AM CDT Left Voicemail (2nd Attempt) and Sent Mychart (2nd Attempt) and Sent Letter for the patient to callback and schedule the following: Appointment type: Return GI Provider: Quiana Fernández Return date: next available- rescheduling needed for 04/13/24 appointment due to a change in providers schedule. At this time appointment has been canceled- max attempts. *okay to reschedule as virtual or in person* Specialty phone number: [phone] Additional appointment(s) needed: NA Additonal Notes: LVMx2/MyC x2/Letter x1 * Telephone Encounter - Alyssa Berrios - 01/27/2024 1:06 PM CDT Left Voicemail (1st Attempt) and Sent Mychart (1st Attempt) for the patient to call back and schedule the following: Appointment type: Return GI Provider: Quiana Fernández Return date: next available- rescheduling needed for 04/13/24 appointment due to a change in providers schedule Specialty phone number: [phone] Additional appointment(s) needed: NA Additonal Notes: LVM/MyC x1 documented in this encounter Plan of Treatment Upcoming Encounters Date Type Department Care Team (Late st Contact Info) Description 06/14/2024 10:30 AM CDT Office Visit [facility] G[facility] [address]th [place] [address] Quiana Fernández PA-C [address] [place] [address] documented as of this encounter Visit Diagnoses Not on filedocumented in this encounter Additional Health Concerns Assessment Noted Time PHQ-9 Depression Total Score: 16 024 7:58 AM CDT documented as of this encounter Care Teams Possum Trapper Relationship Specialty Start Date End Date Clinic, [address] [address] PCP - General 01/03/22 Quiana Fernández PA-C [address] [place] [address] Physician Cutter Down Gastroenterology 09/11/23 Veena Oscar APRN [facility] [address] Nurse Practitioner aviation technical systems specialist 09/11/23 Quiana Fernández PA-C [address] [place] [address] Assigned Gastroenterology Provider 11/20/23 documented as of this encounter
--- OUTSIDE RECORDS SUMMARY | 2024-03-08 13:13 | XMS_ITS | Encounter Summary ---
Author Organization [place] Address [facility] [address] Care Team Providers Care Delivery Manager Name Role Phone Delmis Wang MD Primary Care Provider [phone] [facility], [facility] Primary Care Provider Quiana Fernández PA-C Unavailable [phone] Veena Oscar APRN VISUALIZATION DEVELOPER Unavailable [phone] Quiana Fernández PA-C Unavailable [phone] Encounter Details Date Type Department Care Team (Late st Contact Info) Description 03/15/2014 Telephone [facility] Behavioral Health Intake [address] [place] [phone] Generic, Behavioral Intake, Social History Tobacco Use Types Packs/Day Years Used Date Smoking Tobacco: Never Assessed Alcohol Use Standard Drinks/Week Comments Yes 0 (1 standard drink = 0.6 oz pur e alcohol) Comments Unknown Sex and Gender Information Value Date Recorded Sex Assigned at Not on file Legal Sex Female 5:19 AM CONTINUOUS IMPROVEMENT SPECIALIST Gender Identity Not on file Sexual Orientation Not on file documented as of this encounter Miscellaneous Notes * Telephone Encounter - Timo Benjamin - 03/15/2014 4:24 PM CST Calling for cd evaluation. Previous treatment at [facility]/ 8 years ago. Says she had a dwi 10/09. On probation. Meds: hx of zoloft, takes ativan prn. Lives with father. kab INUOUS IMPROVEMENT SPECIALIST documented in this encounter Plan of Treatment Upcoming Encounters Date Type Department Care Team (Late st Contact Info) Description 06/14/2024 10:30 AM CDT Office Visit [facility] Gastroenterology Clinic [address] [place] [address] Quiana Fernández PA-C [address] [place] [address] documented as of this encounter Visit Diagnoses Not on filedocumented in this encounter Additional Health Concerns Infection Onset Date Last Indicated Resolved Time Rule Out C-difficile 11/03/2023 11/10/2023 024 11:39 PM CDT documented as of this encounter Care Teams Delivery Manager Relationship Specialty Start Date End Date Delmis Wang MD PCP - General 01/18/12 01/02/22 [facility], [address] [address] PCP - General 01/03/22 Quiana Fernández PA-C [address] [place] [address] Physician Stone And Plate Preparer Apprentice Gastroenterology 09/11/23 Veena Oscar APRN VISUALIZATION DEVELOPER [facility] [address] [place] [address] Nurse Practitioner opening machine cleaner 09/11/23 Quiana Fernández PA-C [address] [place] [address] Assigned Gastroenterology Provider 11/20/23 documented as of this encounter
--- OUTSIDE RECORDS SUMMARY | 2024-03-08 13:13 | XMS_ITS | Referral Summary ---
Author Organization [place] Address [facility] [place] [address] Care Team Providers Care Associate Automation Engineer Name Role Phone Clinic, [facility] Primary Care Provider Quiana Fernández PA-C Unavailable [phone] Veena Oscar APRN SHIP'S CAPTAIN Unavailable [phone] Quiana Fernández PA-C Unavailable [phone] Encounters Date Type Department Care Team Description 03/01/2024 PRE VISIT [facility] [address] [address] Ana Arora GC *-*INCOMING RECORDS*-* (Family history of cancer [Z80.9] //) 03/01/2024 2:15 PM DELIVERY LEAD Virtual Visit [facility] [address] [address] Veena Oscar, BOLT LOADER SHIP'S CAPTAIN Ana Arora GC Family history of prostate cancer (Primary Dx); Family history of malignant neoplasm of breast; Family history of colon cancer 02/24/2024 MyC Medical Advice [facility] [address] [place] [phone] Mayito Collins 01/27/2024 Telephone [facility] Gastroenterology Clinic [address] 4th [place] [address] Quiana Fernández PA-C Appointment (Rescheduling needed for 04/13/24 appointment ) from Last 3 Months Allergies Active Allergy Reactions Criticality Noted Date [...] Active Active Problems No known active problems Social [...] on file Legal Sex Female 5:19 AM DELIVERY LEAD Gender Identity Not on file Sexual Orientation [...] Description 06/14/2024 10:30 AM CDT Office Visit [facility] G[facility]ology [facility] [address] 4th [place] [phone] Quiana Fernández PA-C [address] [place] [address] Procedures Procedure Name Priority Date/Time Associated Diagnosis Comments ABSTRACT HIV Routine 09/03/2023 4:04 PM CDT HEPATITIS C (HIM EXTERNAL RESULT) Routine 09/03/2023 4:04 PM CDT from Last 3 Months or Most Recently Relevant to Health Maintenance Results * ABSTRACT HIV (09/03/2023 4:04 PM CDT) HIV 1&2 EXT Non-Reacti ve [facility] Blood 09/03/2023 4:04 PM CDT [facility] - 09/03/2023 4:04 PM CDT [facility]- External Lab Results us Provider Outside LAB - HIM EXTERNAL RESULT Edite d Result - Final Performing Organization Address City/[facility]/ZIP Co de Phone Number [address] [address] [phone] * Hepatitis C (HIM External Result) (09/03/2023 4:04 PM CDT) Hep C HIM See Scanned Document [facility] 09/03/2023 4:04 PM CDT [facility] - 09/03/2023 4:04 PM CDT [facility]- External Lab Results us Provider Outside LAB - HIM EXTERNAL RESULT Edite d Result - Final [address] [address], [facility] [phone] from Last 3 Months or Most Recently Relevant to Health Maintenance Insurance [email or web address] [place] [address] [place] [id number] [email or web address] [place] Care Teams Associate Automation Engineer Relationship Specialty Start Date End Date Clinic, [address] [address] PCP - General 01/03/22 Quiana Fernández PA-C [address] [place] [address] Physician Lance Crewmember Gastroenterology 09/11/23 Veena Oscar APRN SHIP'S CAPTAIN [address] [address] Nurse Practitioner project manager process development 09/11/23 Quiana Fernández PA-C [address] [place] [phone] Assigned Gastroenterology Provider 11/20/23
--- OUTSIDE RECORDS SUMMARY | 2024-03-08 13:13 | XMS_ITS | Encounter Summary ---
Author Organization [facility] Address [facility] [place] [address] Care Team Providers Care Portfolio Specialist Name Role Phone Clinic, [facility] Primary Care Provider Quiana Fernández PA-C Unavailable [phone] Veena Oscar APRN, CNP Unavailable [phone] Quiana Fernández PA-C Unavailable [phone] Reason for Referral * Genomics (Routine) - Pending Review Specialty Diagnoses / Procedures Referred By Carmelo shields Referred To Contact Diagnoses Family history of prostate cancer Family history of malignant neoplasm of breast Family history of colon cancer Procedures Hereditary Genomics Hold For Preauthorization: Rosa Huerta APRN CNP [address] [place] [address] Phone: tel: fax: Referral ID Status Reason Start Date Expiration Date V isits Requested Visits Authorized [id number] Pending Review 03/01/2024 03/01/2025 1 1 CLOSING SPECIALIST Reason for Visit * Reason Comments Consult * Consultation (Routine: Next available opening) - Pending Review Specialty Diagnoses / Procedures Referred By Carmelo shields Referred To Contact Medical Oncology Diagnoses Family history of cancer Veena Oscar APRN CNP [facility] [address] [place] [address] Phone: tel: fax: Referral ID Status Reason Start Date Expiration Date V isits Requested Visits Authorized [id number] Pending Review 09/18/2023 09/17/2024 1 1 Encounter Details Date Type Department Care Team (Late st Contact Info) Description 03/01/2024 2:15 PM POST CLOSING SPECIALIST Virtual Visit [facility] [address] [place] [address] Veena Oscar APRN [facility] [address] [place] [id number] Ana Arora GC Genetic Counseling Graduate Program Office [address] [place] [address] [phone] [place] [address] Family history of prostate cancer (Primary Dx); Family history of malignant neoplasm of breast; Family history of colon cancer Social History Tobacco Use Types Packs/Day Years [...] on file Legal Sex Female 5:19 AM POST CLOSING SPECIALIST Gender Identity Not on file Sexual Orientation Not on file documented as of this encounter Patient Instructions * Patient Instructions* Ana Arora GC - 03/01/2024 2:15 PM POST CLOSING SPECIALIST Images from the original note were not included. Assessing Cancer Risk Cancer is a common diagnosis which impacts many families. Individuals may develop cancer due to environmental factors (such as exposures and lifestyle), aging, genetic predisposition, or a combination of these factors. Only about 5-10% of cancers are thought to be due to an inherited cancer susceptibility gene. These families often have: Several people with the same or related types of cancer Cancers diagnosed at a young age (before age 50) Individuals with more than one primary cancer Multiple generations of the family affected with cancer Comprehensive Breast and Gynecologic Cancer Panel We each inherit two copies of every gene in our bodies: one from our mother, and one from our father. Each gene has a specific job to do. When a gene has a mistake or ???mutation?? in it, it does not work like it should. Some people may be candidates for genetic testing of more than one gene. For these families, genetic testing using a cancer panel may be offered. These panels will test different genes at once known to increase the risk for breast, ovarian, uterine, and/or other cancers. This handout will review common hereditary breast and gynecologic cancer syndromes. The genes that will be discussed in this handout are: HAKEEM, BRCA1, BRCA2, BRIP1, CDH1, CHEK2, MLH1, MSH2, MSH6, PMS2, EPCAM, PTEN, PALB2, RAD51C, RAD51D, and TP53. The purpose of this handout is to serve as a brief summary of the breast and gynecologic cancer risk genes that have published clinical management guidelines for individuals who are found to carry a mutation. Inheriting a mutation does not mean a person will develop cancer, but it does significantly increase their risk above the general population risk. Hereditary Breast and Ovarian Cancer Syndrome (BRCA1 and BRCA2) A single mutation in one of the copies of BRCA1 or BRCA2 increases the risk for breast and ovarian cancer, among others. The risk for pancreatic cancer and melanoma may also be slightly increased in some families. The chart below shows the chance that someone with a BRCA mutation would develop cancer in his or her lifetime1,2,3,4. Lifetime Cancer Risks General Population BRCA1 BRCA2 Breast 12% >60% >60% Ovarian 1-2% 39-58% 13-29% Prostate 12% 7-26% 19-61% Male Breast 0.1% 0.2-1.2% 1.8-7.1% Pancreas 1-2% Up to 5% 5-10% A person???s ethnic background is also important to consider, as individuals of Ashkenazi Rastafari ancestry have a higher chance of having a BRCA gene mutation. There are three BRCA mutations that occur more frequently in this population. Power Syndrome (MLH1, MSH2, MSH6, PMS2, and EPCAM) Currently five genes are known to cause Power Syndrome: MLH1, MSH2, MSH6, PMS2, and EPCAM. A singlemutation in one of the Power Syndrome genes increases the risk for colon, endometrial, ovarian, andstomach cancers. Other cancers that occur less commonly in Power Syndrome include urinary tract, skin, and brain cancers. The chart below shows the chance that a person with Power syndrome would develop cancer in his or her lifetime5. Lifetime Cancer Risks General Population Power Syndrome Colon 5% 10-61% Endometrial 3% 13-57% Ovarian 1-2% 1-38% Stomach <1% 1-9% *Cancer risk varies depending on Power syndrome gene found Gunnison Syndrome (PTEN) Gunnison syndrome is a hereditary condition that increases the risk for breast, thyroid, endometrial,colon, and kidney cancer. Meir syndrome is caused by a mutation in the PTEN gene. A single mutation in one of the copies of PTEN causes Meir syndrome and increases cancer risk. The chart below shows the chance that someone with a PTEN mutation would develop cancer in their lifetime6,7. Other benign features seen in some individuals with Meir syndrome include benign skin lesions (facial papules, keratoses, lipomas), learning disability, autism, thyroid nodules, colon polyps, and larger head size. Lifetime Cancer Risks General Population Meir Breast 12% 40-60%* Thyroid 1% Up to 38% Renal 1-2% Up to 35% Endometrial 3% Up to 28% Colon 5% Up to 9% Melanoma 2-3% Up to 6% *Emerging data suggests the risk for breast cancer could be greater than 60% Li-Fraumeni Syndrome (TP53) Li-Fraumeni Syndrome (LFS) is a cancer predisposition syndrome caused by a mutation in the TP53 gene. A single mutation in one of the copies of TP53 increases the risk for multiple cancers. Individuals with LFS are at an increased risk for developing cancer at a young age. The lifetime risk for deve lopment of a LFS-associated cancer is 50% by age 30 and 90% by age 60. Core Cancers: Sarcomas, Breast, Brain, Lung, Leukemias/Lymphomas, Adrenocortical carcinomas Other Cancers: Gastrointestinal, Thyroid, Skin, Genitourinary Hereditary Diffuse Gastric Cancer (CDH1) Currently, one gene is known to cause hereditary diffuse gastric cancer (HDGC): CDH1. Individuals with HDGC are at increased risk for diffuse gastric cancer and lobular breast cancer. Of people diagnosed with HDGC, 30-50% have a mutation in the CDH1 gene. This suggests there are likely other genes that may cause HDGC that have not been identified yet. Lifetime Cancer Risks General Population HDGC Diffuse Gastric <1% ~80% Breast 12% 41-60% Additional Genes HAKEEM HAKEEM is a moderate-risk breast cancer gene. Women who have a mutation in HAKEEM can have between a 2-4 fold increased risk for breast cancer compared to the general population8. HAKEEM mutations have also been associated with increased risk for pancreatic cancer between 5-10%9. Individuals who inherit twoATM mutations have a condition called ataxia-telangiectasia (AT). This rare autosomal recessive condition affects the nervous system and immune system, and is associated with progressive cerebellar ataxia beginning in childhood. Individuals with ataxia- telangiectasia often have a weakened immune system and have an increased risk for childhood cancers. PALB2 Mutations in PALB2 have been shown to increase the risk of breast cancer up to 41-60% in some families; where individuals fall within this risk range is dependent upon family [id number]. PALB2 mutations have also been associated with increased risk for pancreatic cancer between 5-10%. Individuals who inherit two PALB2 mutations--one from their mother and one from their father--have a condition called Fanconi Anemia. This rare autosomal recessive condition is associated with short stature, developmental delay, bone marrow failure, and increased risk for childhood cancers. CHEK2 CHEK2 is a moderate-risk breast cancer gene. Women who have a mutation in CHEK2 have around a 2-4 fold increased risk for breast cancer compared to the general population, and this risk may be higherdepending upon family history.11,12,13 The risk of colon cancer may be twice as high as the generalpopulation risk of colon cancer of 5%. Mutations in CHEK2 have also been shown to increase the risk of other cancers, including prostate, however these cancer risks are currently not well understood. BRIP1, RAD51C and RAD51D Mutations in RAD51C and RAD51D have been shown to increase the risk of ovarian cancer and breast cancer 14,. Mutations in BRIP1 have been shown to increase the risk of ovarian cancer and possibly female breast cancer 15 . Lifetime Cancer Risk General Population BRIP1 RAD51C RAD51D Breast 12% Not well defined 20-40% 20-40% Ovarian 1-2% 5-15% 10-15% 10-20% Inheritance All of the cancer syndromes reviewed above are inherited in an autosomal dominant pattern. This means that if a parent has a mutation, each of their children will have a 50% chance of inheriting thatsame mutation. Therefore, each child --male or female-- would have a 50% chance of being at increased risk for developing cancer. Image obtained from Genetics Home Reference, 2013 Mutations in some genes can occur de sharron, which means that a person???s mutation occurred for the first time in them and was not inherited from a parent. Now that they have the mutation, however, itcan be passed on to future generations. Genetic Testing Genetic testing involves a blood test and will look for any harmful mutations that are associated with increased cancer risk. If possible, it is recommended that the person(s) who has had cancer be tested before other family members. That person will give us the most useful information about whether or not a specific gene is associated with the cancer in the family. Results There are three possible results of genetic testing: Positive--a harmful mutation was identified in one or more of the genes Negative--no mutations were identified in any of the genes tested Variant of unknown significance--a variation in one of the genes was identified, but it is unclear how this impacts cancer risk in the family Advantages and Disadvantages There are advantages and disadvantages to genetic testing. Advantages May clarify your cancer risk Can help you make medical decisions May explain the cancers in your family May give useful information to your family members (if you share your results) Disadvantages Possible negative emotional impact of learning about inherited cancer risk Uncertainty in interpreting a negative test result in some situations Possible genetic discrimination concerns (see below) Genetic Information Nondiscrimination Act (ELENA) The Genetic Information Nondiscrimination Act of 2008 (ELENA) is a federal law that protects individuals from health insurance or employment discrimination based on a genetic test result alone (with some exceptions, including employers with fewer than 15 employees, and ). Although rare, GINAdoes not cover discrimination protections in terms of life insurance, retirement care, or disabilityinsurances. Visit the National Human Thermodynamic Process Control Research [place] website to learn more. Reducing Cancer Risk All of the genes described in this handout have nationally recognized cancer screening guidelines that would be recommended for individuals who test positive. In addition to increased cancer screening, surgeries may be offered or recommended to reduce cancer risk. Recommendations are based upon an i ndividual???s genetic test result as well as their personal and family history of cancer. Questions to Think About Regarding Genetic Testing: What effect will the test result have on me and my relationship with my family members if I have aninherited gene mutation? If I don???t have a gene mutation? Should I share my test results, and how will my family react to this news, which may also affect them? Are my children ready to learn new information that may one day affect their own health? Hereditary Cancer Resources FORCE: Facing Our Risk of Cancer Empowered facingourrisk.org [place] bebrightpink.org Li-Fraumeni Syndrome Association lfsassociation.org PTEN World PTENwCortexicald.[employer] No stomach for cancer, Inc. nostomachforcancer.org Stomach cancer relief network Scrnet.org Collaborative Group of the Americas on Inherited Colorectal Cancer (CGA) cgaicc.com Cancer Care cancercare.org [place] Cancer Society (ACS) cancer.org National Cancer [place] (NCI) cancer.gov Please call us if you have any questions or concerns. Cancer Risk Management Program [phone] ( ) Ashok Guzman, MS [facility] [phone] Nessa Paul, MS, [facility] [phone] Jenae Felix, MS, [facility] [phone] Clara Moser, MS, [facility] [phone] Hoda Bhat, MS, [facility] [phone] Ana Arora, MS, [facility] [phone] Paz Aguayo, MS, [facility] [phone] References aWde Fraser PDP, Jennifer S, Kenan MALLORY, Rafita JE, Kierra JL, Zack N, Erica H, Farhat O,Hans A, Nigelini B, Radinorma P, Mandaina S, Cristhian DM, Rowley N, Peewee E, Elena H, Ruel E, Jenelle J, Allen J, Kaylee B, Tulinius H, Thorlacius S, Eerola H, Nevanlinna H, Amador K, Chikis OP. Average risks of breast and ovarian cancer associated with BRCA1 or BRCA2 mutations detected in case series unselected for family history: a combined analysis of 222 studies. Am J Hum Kristal. 2003;72:1117-30. Jim N, Pia M, Camron G. BRCA1 and BRCA2 Hereditary Breast and Ovarian Cancer. Gene Reviewsonline. 2013. Juan Alberto YC, Maria A S, Keara G, Rodriguez S. Breast cancer risk among male BRCA1 and BRCA2 mutation carriers. J Natl Cancer Inst. 2007;99:1811-4. Edmundo PARDO, Subha I, Aakash Downing, Roman E, Leslie DAS, Juan Miguel F. Risk of breast cancer in male BRCA2 carriers. J Med Kristal. 2010;47:710-1. National Comprehensive Cancer Network. Clinical practice guidelines in oncology, colorectal cancer screening. Available online (registration required). 2015. Ortega MH, Mary J, Kyara J, Jimmy LA, Esteban MS, Jayjay C. Lifetime cancer risks in individuals with germline PTEN mutations. Clin Cancer Res. 2012;18:400-7. Pilarski R. Meir Syndrome: A Critical Review of the Clinical Literature. J Kristal Data Modeling Specialist. 2009:18:13-27. Roni A, Eddie D, Tammy S, Amisha P, Chagtai T, Flavia M, George B, Tom H, Froylan R, Audie K, Jess L, Edmundo PARDO, Cristhian Bueno, Nicola DF, Khadra MR, The Breast Cancer Susceptibility Collaboration (UK) & Pattie Kay. HAKEEM mutations that cause ataxia-telangiectasia are breast cancer susceptibility alleles. Nature Genetics. 2006;38:873-875 Eloy N , Chyna Y, Sharyn J, Tony L, Amy GM , Clarita ML, Gallinger S, Shelby AG, Syngal S,Heidy ML, Acosta J , Wilver R, Roshan SZ, Chemo JR, Steven VE, Janet M, Vogelstein B, Marshall N, Angel RH, Lauren KW, and Venkat AP. HAKEEM mutations in patients with hereditary pancreatic cancer. Cancer Discover. 2012;2:41-46 Otilia Gibson., et al. Breast-Cancer Risk in Families with Mutations in PALB2. NEJM. 2014; 371(6):497-506. CHEK2 Breast Cancer Case-Control Consortium. CHEK2*1100delC and susceptibility to breast cancer: A collaborative analysis involving 10,860 breast cancer cases and 9,065 controls from 10 studies. Am JHum Kristal, 74 (2003), pp. 0112-8049 Bebo T, Barby S, Elie K, et al. Spectrum of Mutations in BRCA1, BRCA2, CHEK2, and TP53 in Families at High Risk of Breast Cancer. BEN. 2006;295(12):6914-9448. Ena C, Evy D, Miguelina A, et al. Risk of breast cancer in women with a CHEK2 mutation with and without a family history of breast cancer. J Clin Oncol. 2011;29:6534-3969. Layton H, Sekou E, Clarence SJ, et al. Contribution of germline mutations in the RAD51B, RAD51C, and RAD51D genes to ovarian cancer in the population. J Clin Oncol. 2015;33(26):3863-3553. Doi:10.1200/JCO.2015.61.2408. Susan T, Sandro DF, Roney P, et al. Mutations in BRIP1 confer high risk of ovarian cancer. Nika Kristal. 2011;43(11):7607-8933. doi:10.1038/ng.955. CLOSING SPECIALIST documented in this encounter Progress Notes * Ana Arora GC - 03/01/2024 2:15 PM CST 03/01/2024 Virtual Visit Details Type of service: Video Visit Video Start Time: 2:15pm Video End Time: 2:57pm Originating Location (pt. Location): Home Distant Location (provider location): Off-site Platform used for Video Visit: Gee Referring Provider: Veena Oscar APRN CNP Presenting Information: Today Tomasa elected for a virtual genetic counseling visit through the Cancer Risk Management Program to discuss her family history of cancer. We reviewed this history, cancer screening recommendations, and available genetic testing options. Personal History: Tomasa is a 33 year old female. She does not have any personal history of cancer. She had her first menstrual period at age 9, her first child at age 26, and is premenopausal. Tomasa has her ovaries, fallopian tubes and uterus in place, and she has had no ovarian cancer screening to date. She reports that she has never used hormone replacement therapy. Tomasa has not had a mammogram or colonoscopy and does not regularly do any other cancer screeningat this time. Family History: (Please see scanned pedigree for detailed family history information) Tomasa's father was diagnosed with prostate cancer at age 56 and from metastatic disease at age 60; no genetic testing was pursued. One paternal uncle is 58 and may have had a benign growth biopsied a few years ago, but additional details (including location of the growth) are unknown. Tomasa's paternal grandmother was diagnosed with colon cancer at age 76 and at age 77. Her two sisters (Tomasa's paternal great aunts) were diagnosed with breast cancer at unknown ages and . Tomasa's paternal grandfather was diagnosed with thymus cancer at age 65 and at age 70. His two sisters (Tomasa's paternal great aunts) were diagnosed with breast cancer in their 40/50'sand . His mother (Tomasa's paternal great grandmother) was diagnosed with cervical cancer at an unknown age and . She also had Pick's disease. His father (Tomasa's paternal great grandfather) was diagnosed with stomach cancer at an unknown age and . Tomasa's maternal grandfather was diagnosed with lymphoma at age 59 and at age 62. Tomasa's maternal great grandmother (maternal grandmother's mother) was diagnosed with a bone cancer at an unknown age and . Her maternal ethnicity is and . Her paternal ethnicity is Occitan, Estonian, Malaysian, and Czech. There is no known Ashkenazi Rastafari ancestry on either side of her family. Discussion: We reviewed the features of sporadic, familial, and hereditary cancers. In looking at Tomasa's paternal family history, it is possible that a cancer susceptibility gene is present as Tomasa's father and several extended paternal relatives have been diagnosed with related cancers (prostate, breast, gastrointestinal) in three generations; at least one great aunt was diagnosed with breast cancer in her 40's and her father passed from metastatic prostate cancer (higher likelihood to have a hereditary explanation). We also discussed that her maternal family history is more consistent with sporadic cancer given the cancer types and typical ages at diagnosis. We discussed the natural history and genetics of hereditary cancer, including hereditary breast andovarian cancer (HBOC) syndrome. We reviewed that the most common cause of hereditary breast and prostate cancer is HBOC syndrome, which is caused by mutations in the BRCA1 and BRCA2 genes. Individuals with HBOC syndrome are at increased risk for several different cancers, including female breast, ovarian, male breast, prostate, melanoma, and pancreatic cancer. We discussed that there are additional genes that could cause increased risk for the cancers in herfamily. As many of these genes present with overlapping features in a family and accurate cancer risk cannot always be established based upon the pedigree analysis alone, it would be reasonable for Tomasa to consider panel genetic testing to analyze multiple genes at once. Based on her family history, Tomasa meets current National Comprehensive Cancer Network (NCCN) criteria for genetic testing of high penetrance prostate cancer genes (i.e. HAKEEM, BRCA1, BRCA2, CHEK2, HOXB13, TP53, etc.). A detailed handout regarding these genes/syndromes and the information we discussed was provided Mikey at the end of our appointment today and can be found in the after visit summary. Topics included: inheritance pattern, cancer risks, cancer screening recommendations, and also risks, benefitsand limitations of testing. We discussed that genetic testing for cancer susceptibility genes is typically most informative, though, when it is first performed on a family member with a personal history of cancer. Testing is available to Tomasa, but with limitations. If Tomasa pursues testing at this time and receives a negative result, this does not rule out the possibility of a hereditary cancer syndrome in her and/or her family. Despite these limitations and given that her relatives with cancer before proceeding with genetic testing, Tomasa expressed interest in proceeding with testing herself. We reviewed genetic testing options for hereditary breast, prostate, and gastrointestinal cancers: Comprehensive Hereditary Cancer Panel and Comprehensive Hereditary Cancer Expanded Panel. She opted for testing of the BRCA1 and BRCA2 genes, with reflex to the Comprehensive Hereditary Cancer Expanded Panel. Consent was obtained over the video and she will schedule a lab appointment at her earliest convenience. Once her blood is drawn, it will be sent to the [facility]. Turn around time: 4-6 weeks after her blood is drawn and insurance pre-authorization is obtained. Medical Management: For Tomasa, we reviewed that the information from genetic testing may determine: additional cancer screening for which Tomasa may qualify (i.e. mammogram and breast MRI, more frequent colonoscopies, more frequent dermatologic exams, etc.), options for risk reducing surgeries Tomasa could consider (i.e. bilateral mastectomy, surgery to remove her ovaries and/or uterus, etc.), and targeted chemotherapies if she were to develop certain cancers in the future (i.e. immunotherapy for individuals with Power syndrome, PARP inhibitors, etc.). These recommendations and possible targeted chemotherapies will be discussed in detail once genetictesting is completed. Plan: 1) Today Tomasa elected to proceed with testing of the BRCA1 and BRCA2 genes, with reflex to the Comprehensive Hereditary Cancer Expanded Panel, through the Molecular Diagnostics Laboratory. She will schedule a lab appointment at her earliest convenience. 2) The results should be available 4-6 weeks after her blood is drawn and insurance pre-authorization is obtained. 3) Tomasa will be contacted to schedule a virtual return visit with me to discuss the results. Ana Arora MS, [facility] [place] Licensed, Certified Genetic Counselor Office: [phone] [email or web address] CLOSING SPECIALIST documented in this encounter Nursing Notes * DeclancaroVijaymeliton Kendall - 03/01/2024 2:15 PM CST Current patient location: [address] [place] [id number] Is the patient currently in the state of [place]? YES Visit mode:VIDEO If the visit is dropped, the patient can be reconnected by:VIDEO VISIT: Text to cell phone: Telephone Information: Will anyone else be joining the visit? NO (If patient encounters technical issues they should call [phone]) Are changes needed to the allergy or medication list? N/A Are refills needed on medications prescribed by this physician? NO Rooming Documentation: Questionnaire(s) not done per department protocol Reason for visit: Consult Wu James [facility] CLOSING SPECIALIST documented in this encounter Plan of Treatment Upcoming Encounters Date Type Department Care Team (Late st Contact Info) Description 06/14/2024 10:30 AM CDT Office Visit [facility] [address] [place] [phone] Quiana Fernández PA-C [address] [place] [id number] Scheduled Orders Name Type Priority Associated Diagnoses Orde r Schedule Hereditary [employer] Hold For Preauthorization: Molecular Lab Routine Family history of prostate cancer Family history of malignant neoplasm of breast Family history of colon cancer Expected: 03/01/2024 (Approximate), Expires: 03/01/2025 documented as of this encounter Visit Diagnoses Diagnosis Family history of prostate cancer- Primary Family history of malignant neoplasm of prostate Family history of malignant neoplasm of breast Family history of colon cancer Family history of malignant neoplasm of gastrointestinal tract documented in this encounter Additional Health Concerns Assessment Noted Time PHQ-9 Depression Total Score: 16 024 7:58 AM CDT documented as of this encounter Care Teams Portfolio Specialist Relationship Specialty Start Date End Date Clinic, [address] [address] PCP - General 01/03/22 Quiana Fernández PA-C [address] [place] [address] Physician Community Relations Officer Gastroenterology 09/11/23 Veena Oscar APRN [facility] [address] [place] [address] Nurse Practitioner skin care therapist 09/11/23 Quiana Fernández PA-C [address] [place] [address] Assigned Gastroenterology Provider 11/20/23 documented as of this encounter
--- OUTSIDE RECORDS SUMMARY | 2024-03-08 13:13 | XMS_ITS | Encounter Summary ---
Author Organization [facility] Address [address] [place] [address] Care Team Providers Care Outbound Sales Representative Name Role Phone Clinic, 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 Gender Identity Not on file Sexual Orientation Not on file documented as of this encounter Plan of Treatment Upcoming Encounters Date Type Department Care Team (Late Contact Info) Description 06/14/2024 10:30 AM CDT Office Visit [facility] [address] [place] [address] Quiana Fernández PA-C [address] [place] [phone] documented as of this encounter Visit Diagnoses Not on filedocumented in this encounter Additional Health Concerns Assessment Noted Time PHQ-9 Depression Total Score: 16 024 7:58 AM CDT documented as of this encounter Care Teams Outbound Sales Representative Relationship Specialty Start Date End Date Clinic, [address] [phone] PCP - General 01/03/22 Quiana Fernández PA-C [address] [place] [address] Physician Health Safety Coordinator Gastroenterology 09/11/23 Veena Oscar APRN CNP [address] [address] Nurse Practitioner neonatal pediatric nurse 09/11/23 Quiana Fernández PA-C [address] [place] [phone] Assigned Gastroenterology Provider 11/20/23 documented as of this encounter
== END 2024-03-08 14:42 | disposition home or self-care (01) ==
PROVIDERS: Emergency Provider Emergency Medicine; PCP Physician Assistant Medical
DX: S06.0X0A Concussion without loss of consciousness, initial encounter (principal); W22.8XXA Striking against or struck by other objects, initial encounter; Y99.0 Civilian activity done for income or pay
CPT/HCPCS: 70450; 70486; 99283; 99284

== ENCOUNTER 2024-05-25 14:21 | Outpatient (BNVA) | payer BC, SELFPAY | END 2024-05-25 15:00 | disposition home or self-care (01) | PROVIDERS: PCP Physician Assistant Medical; Referring Provider Physician Assistant Medical; Visit Provider Physician Assistant Medical | DX: D64.9 Anemia, unspecified (principal); R53.83 Other fatigue; R42 Dizziness and giddiness; D50.9 Iron deficiency anemia, unspecified; R63.5 Abnormal weight gain; G56.01 Carpal tunnel syndrome, right upper limb; Z86.39 Personal history of other endocrine, nutritional and metabolic disease | CPT/HCPCS: 80053; 82306; 82607; 82728; 83540; 83550; 84443 ==